=== PATIENT | female | born 1945 | race Two or more races ===

== ENCOUNTER → 2016-10-05 | Outpatient (CLI) | payer MEDICARE, OTHER ==
[2016-10-05 15:25] LABS: Blood Urea Nitrogen 13 mg/dL (7-17); Non-African American GFR(MDRD) >60 (>60 ml/min/1.73 sqM)
== END | disposition home or self-care (01) ==
LOC: LABWHC1 14:45
PROVIDERS: ATTEND Psychiatry & Neurology Neurology
DX: R55 Syncope and collapse (principal)
CPT/HCPCS: 36415; 82565; 84520

== ENCOUNTER → 2016-10-17 | Outpatient (CLI) | payer MEDICARE, OTHER ==
--- NOTE | 2016-10-17 23:33 | MR ---
EXAMINATION TYPE: MR brain wo/w con DATE OF EXAM: 10/17/2016 COMPARISON: NONE HISTORY: Brain tumor and memory loss TECHNIQUE: Multiplanar, multisequence images of the brain and brainstem is performed without and with IV contras t, gadolinium. FINDINGS: Ventricles and sulci appear fairly normal for age. There is mild cerebral cortical atrophy. There is no mass effect nor midline shift. There is no sign of intracranial hemorrhage. There is very minimal increased signal in the subependymal periventricular white matter on the FLAIR images. The brainstem is intact. Sella turcica appears normal. There is mild thinning of the corpus callosum. The contrast images show no pathologic enhancement. There is no evidence of cerebral cortical edema. IMPRESSION: There is mild age related atrophy. No evidence of a neoplastic process. Minimal white mat ter signal changes around the lateral ventricles is nonspecific. This could be earliest stages of tra nsependymal edema and normal pressure type hydrocephalus. There is no obvious hydrocephalus.
== END | disposition home or self-care (01) ==
LOC: RADMRIMAIN 20:36
PROVIDERS: ATTEND Psychiatry & Neurology Neurology
DX: G31.9 Degenerative disease of nervous system, unspecified (principal); R90.82 White matter disease, unspecified
CPT/HCPCS: 70553; A9577

== ENCOUNTER 2020-10-12 16:15 | Emergency (ER) | payer MEDICARE, OTHER ==
[2020-10-12 16:20] LABS: Glucose,Whole Blood 154 mg/dL (75-99)
[2020-10-12 16:35] VITALS: TEMP 97.6
[2020-10-12 17:47] LABS: Basophils # (A) 0.1 k/uL (0-0.2); Basophils % (A) 1 %; Eosinophils # (A) 0.3 k/uL (0-0.7); Eosinophils % (A) 4 %; HCT 49.2 % (34.0-46.0); HGB 16.3 gm/dL (11.4-16.0); Lymphocytes # (A) 2.4 k/uL (1.0-4.8); Lymphocytes % (A) 29 %; MCH 31.8 pg (25.0-35.0); MCHC 33.1 g/dL (31.0-37.0); MCV 96.1 fL (80.0-100.0); Mean Platelet Volume 7.3; Monocytes # (A) 0.5 k/uL (0-1.0); Monocytes % (A) 6 %; Neutrophils # (A) 4.6 k/uL (1.3-7.7); Neutrophils % (A) 56 %; Platelet Count 323 k/uL (150-450); RBC 5.12 m/uL (3.80-5.40); RDW 13.4 % (11.5-15.5); WBC 8.2 k/uL (3.8-10.6)
[2020-10-12 17:52] LABS: Appearance,Urine Cloudy (Clear); Bacteria,Urine Occasional /hpf; Bilirubin,Urine Negative (Negative); Blood,Urine Small (Negative); Color,Urine Yellow; Glucose,Urine (UA) 1+ (Negative); Ketones,Urine Negative (Negative); Leukocyte Esterase,Urine Large (Negative); Mucus,Urine Rare /hpf; Nitrite,Urine Negative (Negative); PH, Urine 5.5 (5.0-8.0); Protein,Urine Trace (Negative); RBC,Urine 34 /hpf (0-5); Specific Gravity,Urine 1.014 (1.001-1.035); Squamous Epithelial Cell,Urine <1 /hpf (0-4); Urobilinogen,Urine <2.0 mg/dL (<2.0); WBC,Urine >182 /hpf (0-5)
[2020-10-12 17:56] LABS: ALT 36 U/L (4-34); AST 44 U/L (14-36); African American GFR (CKD) >90 (>60 ml/min/1.73 sqM); Albumin 4.5 g/dL (3.5-5.0); Alkaline Phosphatase 136 U/L (38-126); Anion Gap 6 mmol/L; Blood Urea Nitrogen 24 mg/dL (7-17); Calcium 9.8 mg/dL (8.4-10.2); Carbon Dioxide 30 mmol/L (22-30); Chloride 106 mmol/L (98-107); Glucose 88 mg/dL (74-99); Magnesium 2.1 mg/dL (1.6-2.3); Non-African American GFR(CKD) 87 (>60 ml/min/1.73 sqM); Potassium 4.8 mmol/L (3.5-5.1); Sodium 142 mmol/L (137-145); Total Bilirubin 0.9 mg/dL (0.2-1.3); Total Protein 7.1 g/dL (6.3-8.2)
--- NOTE | 2020-10-12 18:21 | XR ---
EXAMINATION TYPE: XR chest 2V DATE OF EXAM: 10/12/2020 COMPARISON: NONE HISTORY: Weakness TECHNIQUE: 2 views FINDINGS: Heart and mediastinum are normal. Lungs are clear. Diaphragm is normal. There is bilateral shoulder surgery. Thoracic spine is intact. IMPRESSION: No active cardiac pulmonary disease. No change.
[2020-10-12] MEDS ORDERED: SODIUM CHLORIDE 0.9% 1,000 ML IV STA (18:47)
[2020-10-12] MEDS ORDERED: cefTRIAXone IN SWFI 1,000 MG/10 ML SYRINGE IVP STA (18:47)
--- NOTE | 2020-10-12 19:04 | ED ---
General Adult HPI - General Chief complaint: Recheck/Abnormal Lab/Rx Stated complaint: hypoglecemia Time Seen by Provider: 10/12/20 16:59 Source: patient, EMS, RN notes reviewed Mode of arrival: EMS Limitations: no limitations - History of Present Illness Initial comments: 75-year-old female with a past medical history of restless leg syndrome, asthma presents to the emergency room for a chief complaint of low glucose. Patient reports that she was at her doctor's office and she started to feel very flushed. Patient felt little lightheaded. The ambulance was called. Patient blood sugar was checked was 60. Patient was given an amp of dextrose. Patient didn't have any chest pain or shortness of breath preceding this. Patient states after she received the dextrose she immediately felt much better shortly after. Patient states she is just started a new protein diet and has not been eating carbs. She has only had a protein bar to eat today.Patient has no other complaints at this time including shortness of breath, chest pain, abdominal pain, nausea or vomiting, headache, or visual changes. - Related Data Previous Rx's Medication Instructions Recorded Cephalexin [Keflex] 500 mg PO Q6HR 7 Days #28 cap 10/12/20 Allergies Allergy/AdvReac Type Severity Reaction Status Date / Time No Known Allergies Allergy Verified 10/12/20 18:40 Review of Systems ROS Statement: Those systems with pertinent positive or pertinent negative responses have been documented in the HPI. ROS Other: All systems not noted in ROS Statement are negative. Past Medical History Past Medical History: Asthma Additional Past Medical History / Comment(s): restless legs syndrome History of Any Multi-Drug Resistant Organisms: ESBL, MRSA Date of last positivie culture/infection: 09/18/18-MRSA; 05/05/18-ESBL MDRO Source:: Lip-MRSA; ESBL URINE Past Surgical History: Back Surgery Additional Past Surgical History / Comment(s): bilateral foot surgery, bilateral shoulder, bilateral knee surgeries. Smoking Status: Never smoker Past Alcohol Use History: None Reported Past Drug Use History: None Reported General Exam Limitations: no limitations General appearance: alert, in no apparent distress Head exam: Present: atraumatic, normocephalic, normal inspection Eye exam: Present: normal appearance ENT exam: Present: normal exam, mucous membranes moist Neck exam: Present: normal inspection. Absent: tenderness, meningismus, lymphadenopathy Respiratory exam: Present: normal lung sounds bilaterally. Absent: respiratory distress, wheezes, rales, rhonchi, stridor Cardiovascular Exam: Present: regular rate, normal rhythm, normal heart sounds. Absent: systolic murmur, diastolic murmur, rubs, gallop, clicks GI/Abdominal exam: Present: soft, normal bowel sounds. Absent: distended, tenderness, guarding, rebound, rigid Course Vital Signs 10/12/20 10/12/20 16:24 19:52 Temperature 97.6 F Pulse Rate 66 64 Respiratory 16 18 Rate Blood Pressure 196/84 174/78 O2 Sat by Pulse 96 98 Oximetry EKG Findings - EKG Comments: EKG Findings:: Normal sinus rhythm, ventricular rate 69, MA interval 178, QTC 462 Medical Decision Making - Medical Decision Making Vital signs stable. Patient is well-appearing. Patient does have evidence of dehydration on laboratory evaluation. Hemoglobin is concentrated at 16.3. BUN is elevated at 24 with a BUN to creatinine ratio of 37.5. Patient was given a liter of fluid. Patient's glucose has been stable. Urinalysis does show evidence of urinary tract infection. Patient was given Rocephin. At this time patient likely has symptoms from hypoglycemia secondary to decreased dietary i ntake. Urinary tract infection may have also played a role which will be treated. Patient will follow-up with her doctor. She will return for any worsening symptoms. Patient's most recent urine culture was sensitive to penicillins, we will start her on Keflex. - Lab Data Result diagrams: 10/12/20 17:27 10/12/20 17:27 Lab Results 10/12/20 10/12/20 10/12/20 Range/Units 16:18 17:27 17:27 WBC 8.2 (3.8-10.6) k/uL RBC 5.12 (3.80-5.40) m/uL Hgb 16.3 H (11.4-16.0) gm/dL Hct 49.2 H (34.0-46.0) % MCV 96.1 (80.0-100.0) fL MCH 31.8 (25.0-35.0) pg MCHC 33.1 (31.0-37.0) g/dL RDW 13.4 (11.5-15.5) % Plt Count 323 (150-450) k/uL MPV 7.3 Neutrophils % 56 % Lymphocytes % 29 % Monocytes % 6 % Eosinophils % 4 % Basophils % 1 % Neutrophils # 4.6 (1.3-7.7) k/uL Lymphocytes # 2.4 (1.0-4.8) k/uL Monocytes # 0.5 (0-1.0) k/uL Eosinophils # 0.3 (0-0.7) k/uL Basophils # 0.1 (0-0.2) k/uL Sodium 142 (137-145) mmol/L Potassium 4.8 (3.5-5.1) mmol/L Chloride 106 (98-107) mmol/L Carbon Dioxide 30 (22-30) mmol/L Anion Gap 6 mmol/L BUN 24 H (7-17) mg/dL Creatinine 0.64 (0.52-1.04) mg/dL Est GFR (CKD-EPI)AfAm >90 (>60 ml/min/1.73 sqM) Est GFR (CKD-EPI)NonAf 87 (>60 ml/min/1.73 sqM) Glucose 88 (74-99) mg/dL POC Glucose (mg/dL) 154 H (75-99) mg/dL POC Glu Senior Application Programmer ID Ruth Mendoza Calcium 9.8 (8.4-10.2) mg/dL Magnesium 2.1 (1.6-2.3) mg/dL Total Bilirubin 0.9 (0.2-1.3) mg/dL AST 44 H (14-36) U/L ALT 36 H (4-34) U/L Alkaline Phosphatase 136 H (38-126) U/L Troponin I (0.000-0.034) ng/mL Total Protein 7.1 (6.3-8.2) g/dL Albumin 4.5 (3.5-5.0) g/dL Urine Color Urine Appearance (Clear) Urine pH (5.0-8.0) Ur Specific [place] (1.001-1.035) Urine Protein (Negative) Urine Glucose (UA) (Negative) Urine Ketones (Negative) Urine Blood (Negative) Urine Nitrite (Negative) Urine Bilirubin (Negative) Urine Urobilinogen (<2.0) mg/dL Ur Leukocyte Esterase (Negative) Urine RBC (0-5) /hpf Urine WBC (0-5) /hpf Urine WBC Clumps (None) /hpf Ur Squamous Epith Cells (0-4) /hpf Urine Bacteria (None) /hpf Urine Mucus (None) /hpf 10/12/20 10/12/20 Range/Units 17:27 17:27 WBC (3.8-10.6) k/uL RBC (3.80-5.40) m/uL Hgb (11.4-16.0) gm/dL Hct (34.0-46.0) % MCV (80.0-100.0) fL MCH (25.0-35.0) pg MCHC (31.0-37.0) g/dL RDW (11.5-15.5) % Plt Count (150-450) k/uL MPV Neutrophils % % Lymphocytes % % Monocytes % % Eosinophils % % Basophils % % Neutrophils # (1.3-7.7) k/uL Lymphocytes # (1.0-4.8) k/uL Monocytes # (0-1.0) k/uL Eosinophils # (0-0.7) k/uL Basophils # (0-0.2) k/uL Sodium (137-145) mmol/L Potassium (3.5-5.1) mmol/L Chloride (98-107) mmol/L Carbon Dioxide (22-30) mmol/L Anion Gap mmol/L BUN (7-17) mg/dL Creatinine (0.52-1.04) mg/dL Est GFR (CKD-EPI)AfAm (>60 ml/min/1.73 sqM) Est GFR (CKD-EPI)NonAf (>60 ml/min/1.73 sqM) Glucose (74-99) mg/dL POC Glucose (mg/dL) (75-99) mg/dL POC Glu Senior Application Programmer ID Calcium (8.4-10.2) mg/dL Magnesium (1.6-2.3) mg/dL Total Bilirubin (0.2-1.3) mg/dL AST (14-36) U/L ALT (4-34) U/L Alkaline Phosphatase (38-126) U/L Troponin I <0.012 (0.000-0.034) ng/mL Total Protein (6.3-8.2) g/dL Albumin (3.5-5.0) g/dL Urine Color Yellow Urine Appearance Cloudy H (Clear) Urine pH 5.5 (5.0-8.0) Ur Specific [place] 1.014 (1.001-1.035) Urine Protein Trace H (Negative) Urine Glucose (UA) 1+ H (Negative) Urine Ketones Negative (Negative) Urine Blood Small H (Negative) Urine Nitrite Negative (Negative) Urine Bilirubin Negative (Negative) Urine Urobilinogen <2.0 (<2.0) mg/dL Ur Leukocyte Esterase Large H (Negative) Urine RBC 34 H (0-5) /hpf Urine WBC >182 H (0-5) /hpf Urine WBC Clumps Few H (None) /hpf Ur Squamous Epith Cells <1 (0-4) /hpf Urine Bacteria Occasional H (None) /hpf Urine Mucus Rare H (None) /hpf Disposition Clinical Impression: UTI (urinary tract infection), Hypoglycemia Disposition: HOME SELF-CARE Condition: Good Instructions (If sedation given, give patient instructions): Urinary Tract Infection in Older Adults (ED) Additional Instructions: Please take antibiotics as directed. Drink plenty of fluids. Follow-up with your doctor. Return to the emergency room for any worsening symptoms. Prescriptions: Cephalexin [Keflex] 500 mg PO Q6HR 7 Days #28 cap Is patient prescribed a controlled substance at d/c from ED?: No Referrals: Dawn Sinclair MD [Primary Care Provider] - 1-2 days Time of Disposition: 19:09
[2020-10-12 19:53] VITALS: BP 174/78; PULSE 64; RESP 18
== END 2020-10-12 19:59 | disposition home or self-care (01) ==
LOC: EC 16:15
DX: N39.0 Urinary tract infection, site not specified (principal); E16.2 Hypoglycemia, unspecified; J45.909 Unspecified asthma, uncomplicated
CPT/HCPCS: 99285; 96361; 96374; 36415; 93005; 80053; 83735; 84484; 85025; 81001; 87086; 71046; J0696

== ENCOUNTER 2020-10-17 12:14 | Emergency (ER) | payer MEDICARE, OTHER ==
[2020-10-17 12:22] VITALS: TEMP 97.8
[2020-10-17 13:00] LABS: Glucose,Whole Blood 97 mg/dL (75-99)
[2020-10-17 13:08] LABS: Appearance,Urine Clear (Clear); Bilirubin,Urine Negative (Negative); Blood,Urine Trace (Negative); Color,Urine Yellow; Glucose,Urine (UA) Negative (Negative); Ketones,Urine Negative (Negative); Leukocyte Esterase,Urine Negative (Negative); Mucus,Urine Rare /hpf; Nitrite,Urine Negative (Negative); PH, Urine 5.5 (5.0-8.0); Protein,Urine Negative (Negative); RBC,Urine 13 /hpf (0-5); Specific Gravity,Urine 1.011 (1.001-1.035); Urobilinogen,Urine <2.0 mg/dL (<2.0); WBC,Urine 2 /hpf (0-5)
[2020-10-17] MEDS ORDERED: SODIUM CHLORIDE 0.9% 1,000 ML IV STA (14:10)
[2020-10-17] MEDS ORDERED: ONDANSETRON 4 MG/2 ML VIAL IVP STA (14:11)
[2020-10-17] MEDS ORDERED: FAMOTIDINE 20 MG/2 ML VIAL IV STA (14:11)
[2020-10-17 14:22] LABS: Basophils # (A) 0.1 k/uL (0-0.2); Basophils % (A) 1 %; Eosinophils # (A) 0.3 k/uL (0-0.7); Eosinophils % (A) 5 %; HCT 42.1 % (34.0-46.0); HGB 14.3 gm/dL (11.4-16.0); Lymphocytes # (A) 2.5 k/uL (1.0-4.8); Lymphocytes % (A) 35 %; MCH 31.9 pg (25.0-35.0); MCV 93.8 fL (80.0-100.0); Mean Platelet Volume 8.3; Monocytes # (A) 0.5 k/uL (0-1.0); Monocytes % (A) 7 %; Neutrophils # (A) 3.6 k/uL (1.3-7.7); Neutrophils % (A) 49 %; Platelet Count 360 k/uL (150-450); RBC 4.49 m/uL (3.80-5.40); RDW 12.9 % (11.5-15.5); WBC 7.3 k/uL (3.8-10.6)
[2020-10-17 14:37] LABS: ALT 44 U/L (4-34); AST 46 U/L (14-36); African American GFR (CKD) >90 (>60 ml/min/1.73 sqM); Albumin 3.8 g/dL (3.5-5.0); Alkaline Phosphatase 109 U/L (38-126); Anion Gap 5 mmol/L; Blood Urea Nitrogen 40 mg/dL (7-17); Calcium 9.7 mg/dL (8.4-10.2); Carbon Dioxide 26 mmol/L (22-30); Chloride 109 mmol/L (98-107); Glucose 95 mg/dL (74-99); Lipase 125 U/L (23-300); Non-African American GFR(CKD) 88 (>60 ml/min/1.73 sqM); Potassium 4.6 mmol/L (3.5-5.1); Sodium 140 mmol/L (137-145); Total Bilirubin 0.6 mg/dL (0.2-1.3); Total Protein 6.2 g/dL (6.3-8.2)
[2020-10-17 14:49] LABS: INR 0.9 (<1.2)
--- NOTE | 2020-10-17 14:56 | XR ---
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 Heart upper limits of normal in size. Mild tortuosity/ectasia of the thoracic aorta is unchanged. Mild interstitial prominence is un changed. Hazy lower density likely related to portable technique and overlying soft tissue. Upper and mid lungs are clear. Impression: Hazy lower lung densities likely technical due to portable technique and patient body habitus. Upper and mid lungs are clear. No definite acute process.
[2020-10-17 15:07] LABS: Partial Thromboplastin Time 20.4 sec (22.0-30.0)
[2020-10-17 16:23] VITALS: BP 138/76; PULSE 71; RESP 18
--- NOTE | 2020-10-17 16:28 | ED ---
General Adult HPI - General Chief complaint: Urogenital Stated complaint: revisit - UTI, arm swelling Time Seen by Provider: 10/17/20 13:52 Source: patient Mode of arrival: ambulatory Limitations: no limitations - History of Present Illness Initial comments: Patient is a 75 female with a past medical history remarkable for UTIs, restless leg syndrome, asthma who presents to emergency department complaining of intermittent abdominal discomfort which is more or less resolved at this time. She states she has been having multiple episodes of loose stools over the last few days. She denies any fevers, chills, sick contacts. She states she recently completed a course of antibiotics for her UTI. She is concerned that she may have another UTI. She denies any drug use. She denies any chest pain or shortness of breath. She has no other acute complaints at this time. Her primary complaint is her nonbloody loose stool that she is having. She wanted to be reevaluated as she cannot get into her primary care's office. - Related Data Home Medications Medication Instructions Recorded Confirmed ARIPiprazole [Abilify] 1 mg PO DAILY 10/17/20 10/17/20 Albuterol Sulfate [Ventolin HFA] 2 puff INHALATION RT-QID PRN 10/17/20 10/17/20 Artificial Tears-Hypromellose 1 drop BOTH EYES HS 10/17/20 10/17/20 [Artificial Tear Drops] Brimonidine Tartrate [Alphagan P 1 drop LEFT EYE BID 10/17/20 10/17/20 0.1% Ophth Soln] DULoxetine HCL [Cymbalta] 60 mg PO DAILY 10/17/20 10/17/20 Diclofenac Sodium [Voltaren] 50 mg PO BID 10/17/20 10/17/20 Divalproex ER [Depakote ER] 500 mg PO HS 10/17/20 10/17/20 Dorzolamide 2% [Trusopt 2%] 1 drop BOTH EYES BID 10/17/20 10/17/20 Fluticasone/Salmeterol [Advair 1 puff INHALATION RT-BID 10/17/20 10/17/20 250-50 Diskus] Levothyroxine Sodium [Synthroid] 100 mcg PO DAILY 10/17/20 10/17/20 Omeprazole 20 mg PO DAILY PRN 10/17/20 10/17/20 Travoprost [Travatan Z 0.004%] 1 drop BOTH EYES HS 10/17/20 10/17/20 Vit C/E/Zn/Coppr/Lutein/Zeaxan 1 cap PO BID 10/17/20 10/17/20 [Preservision Areds 2 Softgel] lamoTRIgine [LaMICtal] 50 mg PO DAILY 10/17/20 10/17/20 rOPINIRole HCL [Requip] 2 mg PO HS 10/17/20 10/17/20 Allergies Allergy/AdvReac Type Severity Reaction Status Date / Time No Known Allergies Allergy Verified 10/17/20 16:29 Review of Systems ROS Statement: Those systems with pertinent positive or pertinent negative responses have been documented in the HPI. Review of Systems: CONST: Denies fever EYES: Denies blurry vision ENT: Denies nasal congestion C/V: Denies Chest pain RESP: Denies shortness of breath GI: Endorses loose stool : Denies dysuria SKIN: Denies rash. MSK: Denies joint pain. NEURO: Denies headache ROS Other: All systems not noted in ROS Statement are negative. Past Medical History Past Medical History: Asthma Additional Past Medical History / Comment(s): restless legs syndrome History of Any Multi-Drug Resistant Organisms: ESBL, MRSA Date of last positivie culture/infection: 09/18/18-MRSA; 05/05/18-ESBL MDRO Source:: Lip-MRSA; ESBL URINE Past Surgical History: Back Surgery Additional Past Surgical History / Comment(s): bilateral foot surgery, bilateral shoulder, bilateral knee surgeries. Past Psychological History: No Psychological Hx Reported Smoking Status: Never smoker Past Alcohol Use History: None Reported Past Drug Use History: None Reported General Exam - General Exam Comments Initial Comments: General: Appears in no acute distress. HEAD: Normal with no signs of head trauma. EYES: PERRLA, EOMI, conjunctiva normal, no discharge. ENT: Hearing grossly intact, normal oropharynx. RESPIRATORY: Clear breath sounds bilaterally. No wheezes, rales, or rhonchi. C/V: Regular rate and rhythm. S1 and S2 auscultated, no edema, peripheral pulses 2+ and intact throughout ABD: Abdomen soft, nontender, nondistended. She has no CVA tenderness to percussion. There is no guarding. There are no peritoneal signs. EXT: Normal range of motion, no obvious deformity SKIN: No rashes or lesions observed on exposed skin. NEURO: Alert and oriented 4 Limitations: no limitations Course Vital Signs 10/17/20 10/17/20 12:19 16:23 Temperature 97.8 F Pulse Rate 82 71 Respiratory 16 18 Rate Blood Pressure 148/87 138/76 O2 Sat by Pulse 97 97 Oximetry EKG Findings - EKG Comments: EKG Findings:: 12-lead Electrocardiogram Interpretation Note. EKG was reviewed and interpreted by myself. 12-lead ECG performed at 1417 is interpreted by me as revealing normal sinus rhythm at a rate of 65 beats per minute. [place] is normal. TN interval is 180 ms, QRS duration is 76 seconds, QTC is 438 ms.. There were no ST or T wave abnormalities to suggest myocardial ischemia or injury. R wave progression across the precordium was satisfactory. By my interpretation this EKG is non-diagnostic for acute ischemia. Medical Decision Making - Medical Decision Making Based on the patient's presentation and physical exam, I would like to rule out possible cardiac etiology for her nonspecific abdominal discomfort. I would also like to obtain basic abdominal laboratories studies as well as a urinalysis. The patient was in agreement to this plan. This also includes an EKG and chest x-ray. Patient will be connected to continuous cardiac monitoring while she is here in the department. She will be given a 1 L fluid bolus as well as IV Zofran and famotidine. Patient's EKG was within normal limits and show no acute signs of ischemia. Patient's chest x-ray revealed no acute cardiopulmonary process. Laboratory studies revealed mildly elevated BUN but otherwise normal renal function. Patient is very mildly elevated LFTs with an AST of 46 and ALT of 44. Patient's urinalysis did not reveal any acute signs of infection at this time. Troponin was negative. On reevaluation, patient is feeling improved. She no longer has abdominal discomfort. She would like to be discharged home with follow-up with her PCP. I believe this is reasonable. I informed her that her workup is negative and she expressed understanding. She'll therefore was discharged home in improved condition. - Lab Data Result diagrams: 10/17/20 14:10 10/17/20 14:36 Lab Results 10/17/20 10/17/20 10/17/20 Range/Units 12:48 12:58 14:10 WBC 7.3 (3.8-10.6) k/uL RBC 4.49 (3.80-5.40) m/uL Hgb 14.3 (11.4-16.0) gm/dL Hct 42.1 (34.0-46.0) % MCV 93.8 (80.0-100.0) fL MCH 31.9 (25.0-35.0) pg MCHC 34.0 (31.0-37.0) g/dL RDW 12.9 (11.5-15.5) % Plt Count 360 (150-450) k/uL MPV 8.3 Neutrophils % 49 % Lymphocytes % 35 % Monocytes % 7 % Eosinophils % 5 % Basophils % 1 % Neutrophils # 3.6 (1.3-7.7) k/uL Lymphocytes # 2.5 (1.0-4.8) k/uL Monocytes # 0.5 (0-1.0) k/uL Eosinophils # 0.3 (0-0.7) k/uL Basophils # 0.1 (0-0.2) k/uL PT (9.0-12.0) sec INR (<1.2) APTT (22.0-30.0) sec Sodium (137-145) mmol/L Potassium (3.5-5.1) mmol/L Chloride (98-107) mmol/L Carbon Dioxide (22-30) mmol/L Anion Gap mmol/L BUN (7-17) mg/dL Creatinine (0.52-1.04) mg/dL Est GFR (CKD-EPI)AfAm (>60 ml/min/1.73 sqM) Est GFR (CKD-EPI)NonAf (>60 ml/min/1.73 sqM) Glucose (74-99) mg/dL POC Glucose (mg/dL) 97 (75-99) mg/dL POC Glu Manager Drug ID Jennifer Crabtree Calcium (8.4-10.2) mg/dL Magnesium (1.6-2.3) mg/dL Total Bilirubin (0.2-1.3) mg/dL AST (14-36) U/L ALT (4-34) U/L Alkaline Phosphatase (38-126) U/L Troponin I (0.000-0.034) ng/mL Total Protein (6.3-8.2) g/dL Albumin (3.5-5.0) g/dL Lipase (23-300) U/L Urine Color Yellow Urine Appearance Clear (Clear) Urine pH 5.5 (5.0-8.0) Ur Specific [place] 1.011 (1.001-1.035) Urine Protein Negative (Negative) Urine Glucose (UA) Negative (Negative) Urine Ketones Negative (Negative) Urine Blood Trace H (Negative) Urine Nitrite Negative (Negative) Urine Bilirubin Negative (Negative) Urine Urobilinogen <2.0 (<2.0) mg/dL Ur Leukocyte Esterase Negative (Negative) Urine RBC 13 H (0-5) /hpf Urine WBC 2 (0-5) /hpf Urine Mucus Rare H (None) /hpf 10/17/20 10/17/20 10/17/20 Range/Units 14:36 14:36 14:36 WBC (3.8-10.6) k/uL RBC (3.80-5.40) m/uL Hgb (11.4-16.0) gm/dL Hct (34.0-46.0) % MCV (80.0-100.0) fL MCH (25.0-35.0) pg MCHC (31.0-37.0) g/dL RDW (11.5-15.5) % Plt Count (150-450) k/uL MPV Neutrophils % % Lymphocytes % % Monocytes % % Eosinophils % % Basophils % % Neutrophils # (1.3-7.7) k/uL Lymphocytes # (1.0-4.8) k/uL Monocytes # (0-1.0) k/uL Eosinophils # (0-0.7) k/uL Basophils # (0-0.2) k/uL PT 10.0 (9.0-12.0) sec INR 0.9 (<1.2) APTT 20.4 L (22.0-30.0) sec Sodium 140 (137-145) mmol/L Potassium 4.6 (3.5-5.1) mmol/L Chloride 109 H (98-107) mmol/L Carbon Dioxide 26 (22-30) mmol/L Anion Gap 5 mmol/L BUN 40 H (7-17) mg/dL Creatinine 0.61 (0.52-1.04) mg/dL Est GFR (CKD-EPI)AfAm >90 (>60 ml/min/1.73 sqM) Est GFR (CKD-EPI)NonAf 88 (>60 ml/min/1.73 sqM) Glucose 95 (74-99) mg/dL POC Glucose (mg/dL) (75-99) mg/dL POC Glu Manager Drug ID Calcium 9.7 (8.4-10.2) mg/dL Magnesium 2.0 (1.6-2.3) mg/dL Total Bilirubin 0.6 (0.2-1.3) mg/dL AST 46 H (14-36) U/L ALT 44 H (4-34) U/L Alkaline Phosphatase 109 (38-126) U/L Troponin I <0.012 (0.000-0.034) ng/mL Total Protein 6.2 L (6.3-8.2) g/dL Albumin 3.8 (3.5-5.0) g/dL Lipase 125 (23-300) U/L Urine Color Urine Appearance (Clear) Urine pH (5.0-8.0) Ur Specific [place] (1.001-1.035) Urine Protein (Negative) Urine Glucose (UA) (Negative) Urine Ketones (Negative) Urine Blood (Negative) Urine Nitrite (Negative) Urine Bilirubin (Negative) Urine Urobilinogen (<2.0) mg/dL Ur Leukocyte Esterase (Negative) Urine RBC (0-5) /hpf Urine WBC (0-5) /hpf Urine Mucus (None) /hpf Disposition Clinical Impression: Loose stools, Dehydration Disposition: HOME SELF-CARE Condition: Good Instructions (If sedation given, give patient instructions): Dehydration (ED) Is patient prescribed a controlled substance at d/c from ED?: No Referrals: Dawn Sinclair MD [Primary Care Provider] - 1-2 days
== END 2020-10-17 16:38 | disposition home or self-care (01) ==
LOC: EC 12:14
DX: E86.0 Dehydration (principal); R19.7 Diarrhea, unspecified; R10.9 Unspecified abdominal pain; R79.89 Other specified abnormal findings of blood chemistry; R94.5 Abnormal results of liver function studies; M79.89 Other specified soft tissue disorders; J45.909 Unspecified asthma, uncomplicated; G25.81 Restless legs syndrome; Z79.1 Long term (current) use of non-steroidal anti-inflammatories (NSAID); Z79.51 Long term (current) use of inhaled steroids
CPT/HCPCS: 36415; 93005; 80053; 83690; 83735; 84484; 85025; 85610; 85730; 81001; 71045; 99284; 96374; 96361; 96375; J2405

== ENCOUNTER → 2021-01-18 | Outpatient (CLI) | payer MEDICARE, OTHER ==
--- NOTE | 2021-01-18 11:35 | US ---
EXAMINATION TYPE: US carotid duplex BILAT DATE OF EXAM: 01/18/2021 COMPARISON: NONE CLINICAL HISTORY: G45.2 TIA. Dizziness EXAM MEASUREMENTS: RIGHT: Peak Systolic Velocity (PSV) cm/sec ----- Right CCA: 77.2 ----- Right ICA: 84.1 ----- Right ECA: 63.8 ICA/CCA ratio: 1.1 RIGHT: End Diastole cm/sec ----- Right CCA: 18.1 ----- Right ICA: 19.7 ----- Right ECA: 10.1 LEFT: Peak Systolic Velocity (PSV) cm/sec ----- Left CCA: 80.2 ----- Left ICA: 85.7 ----- Left ECA: 89.1 ICA/CCA ratio: 1.1 LEFT: End Diastole cm/sec ----- Left CCA: 21.2 ----- Left ICA: 25.1 ----- Left ECA: 15.0 VERTEBRALS (direction of flow): Right Vertebral: Antegrade Left Vertebral: Antegrade Rhythm: Normal No elevated velocities IMPRESSION: No evidence for hemodynamically significant stenosis. Criteria for Assigning % of Stenosis / Diameter reduction (Estimation based on the indirect measurements of the internal carotid artery velocities (ICA PSV). 1. Normal (no stenosis)=ICA PSV < 125 cm/s: ratio < 2.0: ICA EDV<40 cm/s. 2. Less than 50% stenosis=ICA PSV < 125 cm/s: ratio < 2.0: ICA EDV<40 cm/s. 3. 50 to 69% stenosis=ICA PSV of 125 to 230 cm/s: ration 2.0 ? 4.0: ICA EDV 40-100 cm/s. 4. Greater than 70% stenosis to near occlusion= ICA PSV > 230 cm/s: ratio > 4.0: ICA EDV > 100 cm/s. 5. Near occlusion= ICA PSV velocities may be low or undetectable: variable ratio and ICA EDV. 6. Total occlusion=unable to detect flow.
== END | disposition home or self-care (01) ==
LOC: RADUSWWP 10:38
PROVIDERS: ATTEND Psychiatry & Neurology Neurology
DX: G45.2 Multiple and bilateral precerebral artery syndromes (principal)
CPT/HCPCS: 93880

== ENCOUNTER → 2021-06-15 | Outpatient (CLI) | payer MEDICARE, OTHER ==
--- NOTE | 2021-06-15 13:45 | XR ---
Cervical spine with flexion and extension views HISTORY: Arm weakness for one year 7 views of the cervical spine There is multilevel facet arthropathy change. Oblique images show some foraminal encroachment on the right at C5-6. There is multilevel spondylosis. Loss of disc height is present C3-4, C4-5, C5-6 and C 6-7. Cervical vertebral bodies show preserved height and alignment, bone mineralization. No significa nt listhesis seen on extension view, on flexion there is some anterolisthesis grade 1 C3-4. IMPRESSION: Degenerative disc disease and facet arthropathy, spondylolisthesis on flexion view
== END | disposition home or self-care (01) ==
LOC: RADXRMAIN 11:45
PROVIDERS: ATTEND Family Medicine
DX: M50.323 Other cervical disc degeneration at C6-C7 level (principal); M46.92 Unspecified inflammatory spondylopathy, cervical region; M43.12 Spondylolisthesis, cervical region
CPT/HCPCS: 72052

== ENCOUNTER → 2021-09-19 | Outpatient (CLI) | payer MEDICARE, OTHER ==
--- NOTE | 2021-09-19 15:14 | US ---
EXAMINATION TYPE: US venous doppler duplex LE DATE OF EXAM: 09/19/2021 1:03 PM COMPARISON: NONE CLINICAL HISTORY: I82.409 EMBOLISM AND THOMBOS UNSP DEEP VN. Patient states she had back surgery 6 mo nths ago and ended up with blood clots. No redness or swelling. On blood thinners. SIDE PERFORMED: Bilateral TECHNIQUE: The lower extremity deep venous system is examined utilizing real time linear array sonog oseas with graded compression, doppler sonography and color-flow sonography. VESSELS IMAGED: Common Femoral Vein Deep Femoral Vein Greater Saphenous Vein * Femoral Vein Popliteal Vein Small Saphenous Vein * Proximal Calf Veins (* superficial vessels) There is normal flow, compressibility, vascular waveforms. Right Leg: Negative for DVT Left Leg: Negative for DVT IMPRESSION: No evident deep venous thrombosis within the lower extremities from the level of the knee centrally
== END | disposition home or self-care (01) ==
LOC: RADUSWWP 12:10
PROVIDERS: ATTEND Family Medicine
DX: I82.409 Acute embolism and thrombosis of unspecified deep veins of unspecified lower extremity (principal)
CPT/HCPCS: 93970

== ENCOUNTER → 2021-10-10 | Outpatient (CLI) | payer MEDICARE, OTHER ==
--- NOTE | 2021-10-10 10:27 | MM ---
Reason for Exam: Follow-up at short interval from prior study. Last screening mammogram was performed 4 month(s) ago. Patient History: Menarche at age 12. Postmenopausal. Risk Values: [place] 5 year model risk: 1.3%. NCI Lifetime model risk: 2.4%. Prior Study Comparison: 02/07/2021 Bilateral MG screening mammo w CAD - 2, [facility]. 02/16/2021 Right MG diagnostic mammo RT w CAD - 2, [facility]. 06/13/2021 Right MG diagnostic mammo RT w CAD - 2, [facility]. Tissue Density: The breast tissue is heterogeneously dense. This may lower the sensitivity of mammography. Findings: Analyzed By CAD. There is a 6mm equal, oval mass in the right breast upper outer quadrant with calcifications. There are indeterminate grouped calcifications in the right upper outer quadrant. Overall Assessment: Suspicious, BI-RAD 4 Management: Stereotactic Core Biopsy of the right breast. Electronically signed and approved by: Orestes Shin M.D. Radiologis
== END | disposition home or self-care (01) ==
LOC: RADMAMWWP 08:14
PROVIDERS: ATTEND Family Medicine
DX: R92.8 Other abnormal and inconclusive findings on diagnostic imaging of breast (principal)
CPT/HCPCS: 77066; G0279; 77062

== ENCOUNTER → 2021-10-11 | Outpatient (CLI) | payer MEDICARE, OTHER ==
[2021-10-11 10:15] VITALS: BP 160/91; PULSE 73; RESP 17; TEMP 98.7
--- NOTE | 2021-10-11 11:11 | P.GSHP ---
History of Present Illness H&P Date: 10/11/21 Chief Complaint: abnoraml right breast mammogram Stefani is a 76 year old white female seen in consultation for Dr. Sinclair regarding an abnormality in the right breast. On 10-10-21 she had a bilateral 3-D mammogram reviewed with Dr. Louis and an area of new calci fications was seen in the UOQ of the right breast. Stero biopsy was recommended this area. A second area which appeared to be some nodularity seems to dissipate on the 3-D views. She does not feel any loss masses or nodules of concern in either breast. She is not complaining of any nipple discharge or skin changes. She has not had any recent trauma or infection in the breast. She has never had any surgery on her breast. Family history: sister: lung cancer smoker Hormonal History: menarche: 11 G0 menopause: about 49 BCP: none hormones: none Surgical history: Abscess Bowel obstruction Bilateral total knee Parotid Right shoulder Back Cataracts Right ring finger Back laminectomy Bilateral carpal tunnel Back surgery again in February 2020 Right foot reconstruction 2014 Right shoulder replacement April 2015 Left foot reconstruction April 2018 Left shoulder arthroscopic June 2018 total shoulder replacement September 2018 multiple foot and back surgeries Medical History: pulmonary embolism after back surgery, 2020 ( was on blood thinners, and did have a caregiver filter which has been removed) Social History: smoke: none alcohol: none drugs: none - Constitutional Constitutional: Denies chills, Denies fever - EENT Eyes: denies blurred vision, denies pain Ears: deny: decreased hearing, tinnitus Ears, nose, mouth and throat: Denies headache, Denies sore throat - Breasts Breasts: bilateral: as per HPI - Cardiovascular Cardiovascular: Reports shortness of breath, Denies chest pain - Respiratory Comment: asthma Respiratory: Reports as per HPI - Gastrointestinal Comment: colon resection bowel obstruction Gastrointestinal: Reports as per HPI, Denies abdominal pain, Denies diarrhea, Denies nausea, Denies vomiting - Genitourinary (Female) Comment: bladder leaking/ self cath Genitourinary: Denies dysuria, Denies hematuria - Menstruation Menstruation: Reports postmenopausal - Musculoskeletal Musculoskeletal: Denies myalgias - Integumentary Comment: psoriasis Integumentary: Denies pruritus, Denies rash - Neurological Neurological: Denies numbness, Denies weakness - Psychiatric Psychiatric: Reports depression, Denies anxiety - Endocrine Endocrine: Denies fatigue, Denies weight change - Hematologic/Lymphatic Comment: none off eliquis - Allergic/Immunologic Allergic/Immunologic: Reports as per HPI Past Medical History Past Medical History: Asthma, Osteoarthritis (OA), Thyroid Disorder Additional Past Medical History / Comment(s): restless legs syndrome, History of Any Multi-Drug Resistant Organisms: ESBL, MRSA Date of last positivie culture/infection: 09/18/18-MRSA; 05/05/18-ESBL MDRO Source:: Lip-MRSA; ESBL URINE Past Surgical History: Back Surgery, Orthopedic Surgery, Tonsillectomy Additional Past Surgical History / Comment(s): bilateral foot surgery, bilateral shoulder, bilateral knee surgeries. Four back surgeries last one Feb 2022 Past Anesthesia/Blood Transfusion Reactions: No Reported Reaction Past Psychological History: Depression Additional Psychological History / Comment(s): depression in . Takes medication Smoking Status: Never smoker Past Alcohol Use History: None Reported Past Drug Use History: None Reported Medications and Allergies Home Medications Medication Instructions Recorded Confirmed Type ARIPiprazole [Abilify] 1 mg PO DAILY 10/17/20 10/11/21 History Albuterol Sulfate [Ventolin HFA] 2 puff INHALATION RT-QID PRN 10/17/20 10/11/21 History Artificial Tears-Hypromellose 1 drop BOTH EYES HS 10/17/20 10/11/21 History [Artificial Tear Drops] Brimonidine Tartrate [Alphagan P 1 drop LEFT EYE BID 10/17/20 10/11/21 History 0.1% Ophth Soln] DULoxetine HCL [Cymbalta] 60 mg PO DAILY 10/17/20 10/11/21 History Diclofenac Sodium [Voltaren] 50 mg PO BID 10/17/20 10/11/21 History Divalproex ER [Depakote ER] 500 mg PO HS 10/17/20 10/11/21 History Fluticasone Propion/Salmeterol 1 puff INHALATION RT-BID 10/17/20 10/11/21 History [Advair 250-50 Diskus] Levothyroxine Sodium [Synthroid] 100 mcg PO DAILY 10/17/20 10/11/21 History Omeprazole 40 mg PO DAILY PRN 10/17/20 10/11/21 History Travoprost [Travatan Z 0.004%] 1 drop BOTH EYES HS 10/17/20 10/11/21 History Vit C/E/Zn/Coppr/Lutein/Zeaxan 1 cap PO BID 10/17/20 10/11/21 History [Preservision Areds 2 Softgel] lamoTRIgine [LaMICtal] 50 mg PO DAILY 10/17/20 10/11/21 History rOPINIRole HCL [Requip] 2 mg PO HS 10/17/20 10/11/21 History Pilocarpine [Salagen] 5 mg PO TID 10/10/21 10/11/21 History Aspirin [[place] Aspirin EC] 81 mg PO DAILY 10/11/21 10/11/21 History Cholecalciferol [Vitamin D3 (25 50 mcg PO DAILY 10/11/21 10/11/21 History Mcg = 1000 Iu)] Allergies Allergy/AdvReac Type Severity Reaction Status Date / Time No Known Allergies Allergy Verified 10/11/21 10:05 Surgical - Exam Vital Signs Temp Pulse Resp BP Pulse Ox 98.7 F 73 17 160/91 98 10/11/21 10:12 10/11/21 10:12 10/11/21 10:12 10/11/21 10:12 10/11/21 10:12 BMI: 32.6 - General well developed, well nourished, no distress - Eyes normal ocular movement - ENT no hearing loss - Neck trachea midline - Respiratory normal respiratory effort, clear to auscultation - Cardiovascular Rhythm: regular Heart Sounds: normal: S1, S2 - Abdomen Abdomen: soft, non tender, no guarding, no rigid, no rebound - Integumentary normal turgor - Neurologic no disoriented, no combative - Psychiatric oriented to time, oriented to person, oriented to place, speech is normal, memory intact Breast Exam: BRA: 40D inspection: bilateral grade 3 ptosis palpation: Right breast: Multi-positional exam small area of nodularity upper outer quadrant which may be consistent with that which was seen radiographically Right axilla: No adenopathy of concern Left breast: Multi-positional exam no dominant masses or nodules of concern Left axilla: No adenopathy of concern Results Mammogram reviewed in detail with Dr. Huynh/microcalcifications of concern right breast upper outer quadrant Assessment and Plan Assessment: Impression: Asthma Prior pulmonary embolism resolved Multiple back surgeries Shoulder surgeries Multiple orthopedic procedures Mammographic abnormality right breast Plan: Right breast are detected core biopsy Depending on results of biopsy would recommend biopsy of palpable abnormality as well this may or may not be that which is seen radiographically Risks and benefits of the procedure discussed with the patient. Risks include but are not limited to bleeding, infection, reaction to the anesthetic. If the biopsy results were discordant further tissue would be necessary for evaluation. Alternatives such as watchful waiting or resection in the operating room and noted but not recommended. The patient understands and wishes to proceed. Cc: Dr. Sinclair
== END | disposition home or self-care (01) ==
LOC: WWCWWP 09:55
PROVIDERS: ATTEND Surgery
DX: Z53.9 Procedure and treatment not carried out, unspecified reason (principal)

== ENCOUNTER → 2021-10-16 | Day surgery (SDC) | payer MEDICARE, OTHER ==
[2021-10-16 07:17] VITALS: RESP 16; TEMP 98.6
[2021-10-16 08:47] VITALS: BP 131/79; PULSE 69
--- NOTE | 2021-10-25 10:25 | MM ---
Risk Values: Sherley 5 year model risk: 1.3%. NCI Lifetime model risk: 2.4%. Prior Study Comparison: 02/16/2021 Right MG diagnostic mammo RT w CAD - 2, [facility]. 06/13/2021 Right MG diagnostic mammo RT w CAD - 2, [facility]. 10/10/2021 Bilateral MG 3D diag mammo w/cad [facility], [facility]. Pathology Description: Location: upper outer quadrant. Marker Left Behind. Specimen Radiograph. Approach: CC FA Needle Type: Eviva Cores: 7 Skin Nicks: 1 Gauge: 9 Pathology Results: Result: Benign, Fat necrosis. RIGHT BREAST, CORE BIOPSY: Nodular fat necrosis with acute and chronic inflammation, focal microcalcification, hemorrhage and focal fibrocystic change. Current specimen negative for malignancy. Overall Assessment: Benign Management: Diagnostic Mammogram of the right breast in 6 months. Electronically signed and approved by: Joby Springer D.O. Radiologis
== END ==
LOC: RADMAMWWP 07:04
PROVIDERS: ATTEND Surgery
DX: N64.1 Fat necrosis of breast (principal); R92.0 Mammographic microcalcification found on diagnostic imaging of breast; R92.8 Other abnormal and inconclusive findings on diagnostic imaging of breast
CPT/HCPCS: 88305; 19081; A4648; J2001

== ENCOUNTER 2022-03-16 12:58 | Emergency (ER) | payer MEDICARE, OTHER ==
[2022-03-16 14:20] VITALS: RESP 16; TEMP 97.9
[2022-03-16] MEDS ORDERED: ACETAMINOPHEN TAB 500 MG TAB PO STA (16:22)
--- NOTE | 2022-03-16 16:33 | ED ---
General Adult HPI - General Chief complaint: Head Injury Stated complaint: Fall on , Head Injury Time Seen by Provider: 03/16/22 16:02 Source: patient, RN notes reviewed Mode of arrival: ambulatory Limitations: no limitations - History of Present Illness Initial comments: 76 year old female presents to the emergency department for evaluation of head ache and nausea, onset Saturday evening. Patient states she tripped and fell when getting out of the car Saturday night causing her to strike her head on an asphalt driveway. States she required assistance to standing, but denies any loss of consciousness. States over the past the few days the headache has persisted but the hematoma on her scalp has improved with application of ice. States she feels sore and achy, however, has been able to tolerate oral intake and is ambulatory without assistance. Patient does not take any blood thinning medications. Also complains of right foot pain and is concerned that she landed on it when she fell. Denies dizziness, blurry vision, pain with eye movement, vomiting, chest pain, abdominal pain, hip and back pain, and lower extremity edema. - Related Data Home Medications Medication Instructions Recorded Confirmed ARIPiprazole [Abilify] 1 mg PO DAILY 10/17/20 10/16/21 Albuterol Sulfate [Ventolin HFA] 2 puff INHALATION RT-QID PRN 10/17/20 10/16/21 Artificial Tears-Hypromellose 1 drop BOTH EYES HS 10/17/20 10/16/21 [Artificial Tear Drops] Brimonidine Tartrate [Alphagan P 1 drop LEFT EYE BID 10/17/20 10/16/21 0.1% Ophth Soln] DULoxetine HCL [Cymbalta] 60 mg PO DAILY 10/17/20 10/16/21 Diclofenac Sodium [Voltaren] 50 mg PO BID 10/17/20 10/16/21 Divalproex ER [Depakote ER] 500 mg PO HS 10/17/20 10/16/21 Fluticasone Propion/Salmeterol 1 puff INHALATION RT-BID 10/17/20 10/16/21 [Advair 250-50 Diskus] Levothyroxine Sodium [Synthroid] 100 mcg PO DAILY 10/17/20 10/16/21 Omeprazole 40 mg PO DAILY PRN 10/17/20 10/16/21 Travoprost [Travatan Z 0.004%] 1 drop BOTH EYES HS 10/17/20 10/16/21 Vit C/E/Zn/Coppr/Lutein/Zeaxan 1 cap PO BID 10/17/20 10/16/21 [Preservision Areds 2 Softgel] lamoTRIgine [LaMICtal] 50 mg PO DAILY 10/17/20 10/16/21 rOPINIRole HCL [Requip] 2 mg PO HS 10/17/20 10/16/21 Pilocarpine [Salagen] 5 mg PO TID 10/10/21 10/16/21 Aspirin [[place] Aspirin EC] 81 mg PO DAILY 10/11/21 10/11/21 Cholecalciferol [Vitamin D3 (25 50 mcg PO DAILY 10/11/21 10/11/21 Mcg = 1000 Iu)] Allergies Allergy/AdvReac Type Severity Reaction Status Date / Time No Known Allergies Allergy Verified 03/16/22 14:17 Review of Systems ROS Statement: Those systems with pertinent positive or pertinent negative responses have been documented in the HPI. ROS Other: All systems not noted in ROS Statement are negative. Past Medical History Past Medical History: Asthma, Osteoarthritis (OA), Thyroid Disorder Additional Past Medical History / Comment(s): restless legs syndrome, History of Any Multi-Drug Resistant Organisms: ESBL, MRSA Date of last positivie culture/infection: 09/18/18-MRSA; 05/05/18-ESBL MDRO Source:: Lip-MRSA; ESBL URINE Past Surgical History: Back Surgery, Orthopedic Surgery, Tonsillectomy Additional Past Surgical History / Comment(s): bilateral foot surgery, bilateral shoulder, bilateral knee surgeries. Four back surgeries last one Feb 2022 Past Anesthesia/Blood Transfusion Reactions: No Reported Reaction Past Psychological History: Depression Smoking Status: Former smoker Past Alcohol Use History: None Reported Past Drug Use History: None Reported General Exam Limitations: no limitations General appearance: alert, in no apparent distress Head exam: Present: other (2cm hematoma right parietal area; no abrasion) Eye exam: Present: normal appearance, PERRL, EOMI. Absent: scleral icterus, conjunctival injection, periorbital swelling, periorbital tenderness ENT exam: Present: normal exam, normal oropharynx, mucous membranes moist Neck exam: Present: normal inspection, tenderness (tenderness upon palpation bilateral trapezius muscles and with rotational movement of the neck), full ROM. Absent: lymphadenopathy Respiratory exam: Present: normal lung sounds bilaterally. Absent: respiratory distress, wheezes, rales, rhonchi, stridor, chest wall tenderness Cardiovascular Exam: Present: regular rate, normal rhythm, normal heart sounds GI/Abdominal exam: Present: soft, normal bowel sounds. Absent: distended, tenderness, guarding, rebound, rigid Extremities exam: Present: normal inspection, full ROM (BLE ROM intact and symmetrical), tenderness (tenderness upon palpation of the dorsal aspect of the midfoot), normal capillary refill. Absent: pedal edema, joint swelling, calf tenderness Back exam: Present: normal inspection, full ROM. Absent: tenderness, CVA tenderness (R), CVA tenderness (L), muscle spasm, paraspinal tenderness, vertebral tenderness Neurological exam: Present: alert, oriented X3, CN II-XII intact, normal gait, reflexes normal Expanded Patient oriented to: Present: person, place, time Speech: Present: fluid speech Cranial nerves: EOM's Intact: Normal, Nystagmus: Normal Cerebellar function: Heel to Raymond: Normal Sensory exam: Lower Extremity Light Touch: Normal Motor strength exam: RUE: 5, LUE: 5, RLE: 5, LLE: 5 Eye Response: (4) open spontaneously Motor Response: (6) obeys commands Verbal Response: (5) oriented Amilcar Total: 15 Psychiatric exam: Present: normal affect, normal mood Skin exam: Present: warm, dry, intact, normal color. Absent: rash Course Vital Signs 03/16/22 14:17 Temperature 97.9 F Pulse Rate 72 Respiratory 16 Rate Blood Pressure 167/83 O2 Sat by Pulse 98 Oximetry - Reevaluation(s) Reevaluation #1: 03/16/22 17:45 Patient updated on test results; she verbalizes understanding. States Tylenol did help with her discomfort. She will be discharged home to follow up with her PCP for further evaluation and treatment as needed. Return parameters discussed in detail. Medical Decision Making - Medical Decision Making 76-year-old female with a past medical history of orthopedic surgeries, depression, and restless leg syndrome presents to the emergency department for evaluation of head injury sustained Saturday night in a trip and fall. She does not take any blood thinning medicines. Patient did not have any loss of consciousness or focal neurological deficits. She has experienced mild nausea and occasional headache since the injury. She does have a small scalp hematoma. Patient was given Tylenol with improvement. X-ray of the right foot was obtained due to concerns of possible injury in her fall. There was no acute findings in her x-ray. CT of the brain and C-spine was obtained with no acute findings. Patient is given head injury precautions and encouraged to follow up with her PCP when she returns home to [place]. Strict return parameters were discussed in detail. Patient verbalizes understanding and agrees with this plan. Attending: Mai - Radiology Data Radiology results: report reviewed, image reviewed Interpreted by me: X-ray shows no acute changes in the right foot. Hardware present. CT of the brain and C-spine was obtained. Report was reviewed in its entirety. Impression per Dr. Godinez is mild cervical multilevel spondylitic changes. No fracture. Mild cerebral atrophy and chronic small vessel ischemia. No acute intracranial abnormality. X-ray of the right foot was obtained. Report was reviewed in its entirety. Impression per Dr. Godinez is previous surgery of the proximal metatarsals. No acute bony abnormality. Disposition Clinical Impression: Head injury, Hematoma of scalp, Foot pain, right Disposition: HOME SELF-CARE Condition: Stable Instructions (If sedation given, give patient instructions): Head Injury (ED) Additional Instructions: Continue to take your home medications as prescribed. Tylenol may be taken for pain. Apply ice to swollen area on scalp if needed for discomfort. If you develop any dizziness or blurry vision you should return to the emergency department. Follow-up with your PCP for a recheck when you return to [place]. Is patient prescribed a controlled substance at d/c from ED?: No Referrals: None,Stated [Primary Care Provider] - 1-2 days Time of Disposition: 17:45
--- NOTE | 2022-03-16 17:10 | CT ---
EXAMINATION TYPE: CT brain magdalena eason DATE OF EXAM: 03/16/2022 COMPARISON: HISTORY: Fall. CT DLP: 1736.5 mGycm Automated exposure control for dose reduction was used. CT scan of the brain. There is cerebral cortical atrophy. There is no mass effect or midline shift. No sign of intracranial hemorrhage. Calvarium is intact. There is mild hypodensity in the periventricular white matter. Cervical vertebra have normal alignment. There is disc space narrowing from C3 to T1 with spurring of the endplates. There is minor spurring of the facet joints. No compression fracture. No subluxation. Prevertebral soft tissues are intact. IMPRESSION: Mild cervical multilevel spondylotic changes. No fracture. Mild cerebral atrophy and chronic small vessel ischemia. No acute intracranial abnormality.
--- NOTE | 2022-03-16 17:18 | XR ---
EXAMINATION TYPE: XR foot complete RT DATE OF EXAM: 03/16/2022 COMPARISON: NONE HISTORY: Fall. Pain TECHNIQUE: 3 views FINDINGS: There are plates with screws fixing the proximal first second and third metatarsals. There are 2 screws in the fifth metatarsal. There is mild plantar calcaneal spurring. No acute fracture see n. There is a mild forefoot varus. There is some spurring at the tarsometatarsal joints. IMPRESSION: Previous surgery at the proximal metatarsals. No acute bony abnormality.
[2022-03-16 18:29] VITALS: BP 138/86; PULSE 86
== END 2022-03-16 18:29 | disposition home or self-care (01) ==
LOC: EC 12:58
DX: S00.03XA Contusion of scalp, initial encounter (principal); M79.671 Pain in right foot; J45.909 Unspecified asthma, uncomplicated; E07.9 Disorder of thyroid, unspecified; M19.90 Unspecified osteoarthritis, unspecified site; Z87.891 Personal history of nicotine dependence; Z79.890 Hormone replacement therapy; Z79.82 Long term (current) use of aspirin; Z79.899 Other long term (current) drug therapy; V48.4XXA Person boarding or alighting a car injured in noncollision transport accident, initial encounter; Y92.89 Other specified places as the place of occurrence of the external cause
CPT/HCPCS: 70450; 72125; 99284

== ENCOUNTER 2022-11-04 08:54 | Emergency (ER) | payer MEDICARE ==
[2022-11-04 08:59] VITALS: RESP 18
--- NOTE | 2022-11-04 09:36 | ED ---
General Adult HPI - General Chief complaint: Extremity Injury, Lower Stated complaint: bilateral lower extremity edema Time Seen by Provider: 11/04/22 09:15 Source: patient, RN notes reviewed, old records reviewed Mode of arrival: ambulatory Limitations: no limitations - History of Present Illness Initial comments: This is a 77-year-old female presents emergency Department complaining of swelling to her legs bilaterally. Patient states she did start Norvasc about a month ago. Patient states she also noticed a rash since last night just above her sock line bilaterally it does not niraj with pressing and it does not itch it does not bother her except the fact that is there and it is abnormal for her. Patient denies any fever chills per patient has any calf tenderness. Patient denies any other symptoms at this time. - Related Data Home Medications Medication Instructions Recorded Confirmed ARIPiprazole [Abilify] 1 mg PO DAILY 10/17/20 10/16/21 Albuterol Sulfate [Ventolin HFA] 2 puff INHALATION RT-QID PRN 10/17/20 10/16/21 Artificial Tears-Hypromellose 1 drop BOTH EYES HS 10/17/20 10/16/21 [Artificial Tear Drops] Brimonidine Tartrate [Alphagan P 1 drop LEFT EYE BID 10/17/20 10/16/21 0.1% Ophth Soln] DULoxetine HCL [Cymbalta] 60 mg PO DAILY 10/17/20 10/16/21 Diclofenac Sodium [Voltaren] 50 mg PO BID 10/17/20 10/16/21 Divalproex ER [Depakote ER] 500 mg PO HS 10/17/20 10/16/21 Fluticasone Propion/Salmeterol 1 puff INHALATION RT-BID 10/17/20 10/16/21 [Advair 250-50 Diskus] Levothyroxine Sodium [Synthroid] 100 mcg PO DAILY 10/17/20 10/16/21 Omeprazole 40 mg PO DAILY PRN 10/17/20 10/16/21 Travoprost [Travatan Z 0.004%] 1 drop BOTH EYES HS 10/17/20 10/16/21 Vit C/E/Zn/Coppr/Lutein/Zeaxan 1 cap PO BID 10/17/20 10/16/21 [Preservision Areds 2 Softgel] lamoTRIgine [LaMICtal] 50 mg PO DAILY 10/17/20 10/16/21 rOPINIRole HCL [Requip] 2 mg PO HS 10/17/20 10/16/21 Pilocarpine [Salagen] 5 mg PO TID 10/10/21 10/16/21 Aspirin [[place] Aspirin EC] 81 mg PO DAILY 10/11/21 10/11/21 Cholecalciferol [Vitamin D3 (25 50 mcg PO DAILY 10/11/21 10/11/21 Mcg = 1000 Iu)] Allergies Allergy/AdvReac Type Severity Reaction Status Date / Time lisinopril Allergy Swelling Verified 11/04/22 08:59 Review of Systems ROS Statement: Those systems with pertinent positive or pertinent negative responses have been documented in the HPI. ROS Other: All systems not noted in ROS Statement are negative. Past Medical History Past Medical History: Asthma, Osteoarthritis (OA), Thyroid Disorder Additional Past Medical History / Comment(s): restless legs syndrome, History of Any Multi-Drug Resistant Organisms: ESBL, MRSA Date of last positivie culture/infection: 09/18/18-MRSA; 05/05/18-ESBL MDRO Source:: Lip-MRSA; ESBL URINE Past Surgical History: Back Surgery, Orthopedic Surgery, Tonsillectomy Additional Past Surgical History / Comment(s): bilateral foot surgery, bilateral shoulder, bilateral knee surgeries. Four back surgeries last one Feb 2022 Past Anesthesia/Blood Transfusion Reactions: No Reported Reaction Past Psychological History: Depression Smoking Status: Former smoker Past Alcohol Use History: None Reported Past Drug Use History: None Reported General Exam - General Exam Comments Initial Comments: GENERAL: Patient is well-developed and well-nourished. Patient is nontoxic and well- hydrated and is in no acute distress. ENT: Neck is soft and supple. No significant lymphadenopathy is noted. Oropharynx is clear. Moist mucous membranes. Neck has full range of motion without eliciting any pain. EYES: The sclera were anicteric and conjunctiva were pink and moist. Extraocular movements were intact and pupils were equal round and reactive to light. Eye lids were unremarkable. PULMONARY: Unlabored respirations. Good breath sounds bilaterally. No audible rales rhonchi or wheezing was noted. CARDIOVASCULAR: There is a regular rate and rhythm without any murmurs gallops or rubs. ABDOMEN: Soft and nontender with normal bowel sounds. SKIN: Patient is a nonblanching rash circumferential around the ankle just above the sock line she's very erythematous but not warm and there are some satellite lesions above the confluent areas. NEUROLOGIC: Patient is alert and oriented x3. Cranial nerves II through XII are grossly intact. Motor and sensory are also intact. Normal speech, volume and content. Symmetrical smile. MUSCULOSKELETAL: Normal extremities with adequate strength and full range of motion. 1+ edema bilaterally LYMPHATICS: No significant lymphadenopathy is noted PSYCHIATRIC: Normal psychiatric evaluation. Limitations: no limitations Course Vital Signs 11/04/22 11/04/22 08:55 10:11 Temperature 98.1 F Pulse Rate 74 72 Respiratory 18 18 Rate Blood Pressure 156/81 141/82 O2 Sat by Pulse 96 95 Oximetry Medical Decision Making - Medical Decision Making Was pt. sent in by a medical professional or institution (, PA, [employer], urgent care, hospital, or snf...) When possible be specific @ -No Did you speak to anyone other than the patient for history (EMS, parent, family, police, friend...)? What history was obtained from this source @ -No Did you review nursing and triage notes (agree or disagree)? Why? @ -I reviewed and agree with nursing and triage notes Were old charts reviewed (outside hosp., previous admission, EMS record, old EKG, old radiological studies, urgent care reports/EKG's, snf records)? Report findings @ -No old charts were reviewed Differential Diagnosis (chest pain, altered mental status, abdominal pain women, abdominal pain men, vaginal bleeding, weakness, fever, dyspnea, syncope, headache, dizziness, GI bleed, back pain, seizure, CVA, palpatations, mental health, musculoskeletal)? @ -Cellulitis, viral exanthem, drug reaction, vasculitis, she is not all inclusive list EKG interpreted by me (3pts min.). @ -As above X-rays interpreted by me (1pt min.). @ -None done CT interpreted by me (1pt min.). @ -None done U/S interpreted by me (1pt. min.). @ -None done What testing was considered but not performed or refused? (CT, X-rays, U/S, labs)? Why? @ -None What meds were considered but not given or refused? Why? @ -None Did you discuss the management of the patient with other professionals (professionals i.e. DrHortensia, PA, [employer], lab, RT, psych nurse, social insurance specialist, communication skills instructor, teacher, chief nursing officer, sample case porter)? Give summary @ -No Was smoking cessation discussed for >3mins.? @ -No Was critical care preformed (if so, how long)? @ -No Were there social determinants of health that impacted care today? How? (Homelessness, low income, unemployed, alcoholism, drug addiction, transportation, low edu. Level, literacy, decrease access to med. care, detention, rehab)? @ -No Was there de-escalation of care discussed even if they declined (Discuss DNR or withdrawal of care, Hospice)? DNR status @ -No What co-morbidities impacted this encounter? (DM, HTN, Smoking, COPD, CAD, Cancer, CVA, ARF, Chemo, Hep., AIDS, mental health diagnosis, sleep apnea, morbid obesity)? @ -None Was patient admitted / discharged? Hospital course, mention meds given and route, prescriptions, significant lab abnormalities, going to OR and other pertinent info. @ -Patient's swelling is likely due to the new prescription for Norvasc. 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 The excessive exercise yesterday and the fact the rash ends at the sock line with the additional swelling from the Norvasc I think treatment for her vasculitis she will follow-up with primary medical care doctor Undiagnosed new problem with uncertain prognosis? @ -No Drug Therapy requiring intensive monitoring for toxicity (Heparin, Nitro, Insulin, Cardizem)? @ -No Were any procedures done? @ -No Diagnosis/symptom? @ -Vasculitis Acute, or Chronic, or Acute on Chronic? @ -Acute Uncomplicated (without systemic symptoms) or Complicated (systemic symptoms)? @ -Uncomplicated Side effects of treatment? @ -No Exacerbation, Progression, or Severe Exacerbation? @ -No Poses a threat to life or bodily function? How? (Chest pain, USA, [place], pneumonia, PE, COPD, DKA, ARF, appy, cholecystitis, CVA, Diverticulitis, Homicidal, Suicidal, threat to staff... and all critical care pts) @ -No Diagnosis/symptom? @ -Drug reaction Acute, or Chronic, or Acute on Chronic? @ -Acute Uncomplicated (without systemic symptoms) or Complicated (systemic symptoms)? @ -Uncomplicated Side effects of treatment? @ -none Exacerbation, Progression, or Severe Exacerbation] @ -no Poses a threat to life or bodily function? @ -no - Lab Data Result diagrams: 11/04/22 10:18 11/04/22 10:18 Lab Results 11/04/22 11/04/22 Range/Units 10:18 10:18 WBC 6.1 (3.8-10.6) k/uL RBC 4.03 (3.80-5.40) m/uL Hgb 11.6 (11.4-16.0) gm/dL Hct 36.0 (34.0-46.0) % MCV 89.3 (80.0-100.0) fL MCH 28.8 (25.0-35.0) pg MCHC 32.2 (31.0-37.0) g/dL RDW 14.9 (11.5-15.5) % Plt Count 469 H (150-450) k/uL MPV 7.7 Neutrophils % 59 % Lymphocytes % 25 % Monocytes % 11 % Eosinophils % 3 % Basophils % 1 % Neutrophils # 3.6 (1.3-7.7) k/uL Lymphocytes # 1.5 (1.0-4.8) k/uL Monocytes # 0.7 (0-1.0) k/uL Eosinophils # 0.2 (0-0.7) k/uL Basophils # 0.0 (0-0.2) k/uL Sodium 134 L (137-145) mmol/L Potassium 5.4 H (3.5-5.1) mmol/L Chloride 104 (98-107) mmol/L Carbon Dioxide 24 (22-30) mmol/L Anion Gap 6 mmol/L BUN 35 H (7-17) mg/dL Creatinine 0.66 (0.52-1.04) mg/dL Est GFR (CKD-EPI)AfAm >90 (>60 ml/min/1.73 sqM) Est GFR (CKD-EPI)NonAf 85 (>60 ml/min/1.73 sqM) Glucose 93 (74-99) mg/dL Calcium 9.2 (8.4-10.2) mg/dL Total Bilirubin 0.8 (0.2-1.3) mg/dL AST 30 (14-36) U/L ALT 20 (4-34) U/L Alkaline Phosphatase 89 (38-126) U/L C-Reactive Protein 1.2 H (<1.0) mg/dL Total Protein 6.4 (6.3-8.2) g/dL Albumin 3.5 (3.5-5.0) g/dL Disposition Clinical Impression: Vasculitis, Drug reaction Disposition: HOME SELF-CARE Instructions (If sedation given, give patient instructions): Acute Rash (ED), Adverse Drug Reaction (ED) Is patient prescribed a controlled substance at d/c from ED?: No Referrals: None,Stated [Primary Care Provider] - 1-2 days Time of Disposition: 20:00
[2022-11-04 10:39] LABS: Basophils % (A) 1 %; Eosinophils # (A) 0.2 k/uL (0-0.7); Eosinophils % (A) 3 %; HGB 11.6 gm/dL (11.4-16.0); Lymphocytes # (A) 1.5 k/uL (1.0-4.8); Lymphocytes % (A) 25 %; MCH 28.8 pg (25.0-35.0); MCHC 32.2 g/dL (31.0-37.0); MCV 89.3 fL (80.0-100.0); Mean Platelet Volume 7.7; Monocytes # (A) 0.7 k/uL (0-1.0); Monocytes % (A) 11 %; Neutrophils # (A) 3.6 k/uL (1.3-7.7); Neutrophils % (A) 59 %; Platelet Count 469 k/uL (150-450); RBC 4.03 m/uL (3.80-5.40); RDW 14.9 % (11.5-15.5); WBC 6.1 k/uL (3.8-10.6)
[2022-11-04 10:59] LABS: ALT 20 U/L (4-34); AST 30 U/L (14-36); African American GFR (CKD) >90 (>60 ml/min/1.73 sqM); Albumin 3.5 g/dL (3.5-5.0); Alkaline Phosphatase 89 U/L (38-126); Anion Gap 6 mmol/L; Blood Urea Nitrogen 35 mg/dL (7-17); C Reactive Protein 1.2 mg/dL (<1.0); Calcium 9.2 mg/dL (8.4-10.2); Carbon Dioxide 24 mmol/L (22-30); Chloride 104 mmol/L (98-107); Glucose 93 mg/dL (74-99); Non-African American GFR(CKD) 85 (>60 ml/min/1.73 sqM); Potassium 5.4 mmol/L (3.5-5.1); Sodium 134 mmol/L (137-145); Total Bilirubin 0.8 mg/dL (0.2-1.3); Total Protein 6.4 g/dL (6.3-8.2)
[2022-11-04 11:45] VITALS: BP 144/86; PULSE 74; TEMP 97.7
== END 2022-11-04 11:43 | disposition home or self-care (01) ==
LOC: EC 08:54
DX: I77.6 Arteritis, unspecified (principal); T46.1X5A Adverse effect of calcium-channel blockers, initial encounter; J45.909 Unspecified asthma, uncomplicated; E07.9 Disorder of thyroid, unspecified; M19.90 Unspecified osteoarthritis, unspecified site; F32.A Depression, unspecified; Z87.891 Personal history of nicotine dependence; Z88.8 Allergy status to other drugs, medicaments and biological substances; Z79.890 Hormone replacement therapy; Z79.51 Long term (current) use of inhaled steroids; Z79.899 Other long term (current) drug therapy
CPT/HCPCS: 36415; 80053; 85025; 86140; 99283

== ENCOUNTER → 2023-10-21 | Outpatient (CLI) | payer MEDICARE ==
[2023-10-21 14:18] VITALS: BP 147/74; PULSE 84; RESP 16; TEMP 97.4
[2023-10-21] MEDS: IRON SUCROSE 200 MG in SODIUM CHLORIDE 0.9% 100 ML IVPB NR (14:20)
[2023-10-21] MEDS: SODIUM CHLORIDE 0.9% 500 ML 500 ML in EMPTY BAG 1 BAG IV PRN (14:21)
== END ==
LOC: PROCWHC3 14:07
PROVIDERS: ATTEND Family Medicine
DX: D50.9 Iron deficiency anemia, unspecified (principal)
CPT/HCPCS: 96365; J1756

== ENCOUNTER 2023-11-18 15:18 | Emergency (ER) | payer MEDICARE ==
[2023-11-18 15:36] VITALS: RESP 18; TEMP 98.1
--- NOTE | 2023-11-18 16:19 | ED ---
Lower Extremity Injury HPI - General Chief Complaint: Extremity Injury, Lower Stated Complaint: leg brusing Time Seen by Provider: 11/18/23 15:31 Source: patient, RN notes reviewed Mode of arrival: ambulatory Limitations: no limitations - History of Present Illness Initial Comments: 78-year-old female presents with chief complaint of left lower extremity pain and bruising. Patient states that she has a history of DVT is concerned that she may have a blood clot in the left lower extremity. States that she has pain in the left leg the left hip and groin. She denies recent prolonged travel. Currently she denies shortness of breath, difficulty breathing, chest pain, chest pressure, palpitations, dizziness, lightheadedness. Patient has a recent history of a spinal fusion completed in the morning. Denies any recent injury or falls, saddle anesthesias or loss of bladder or bowel continence. - Related Data Home Medications Medication Instructions Recorded Confirmed ARIPiprazole [Abilify] 1 mg PO DAILY 10/17/20 10/21/23 Albuterol Sulfate [Ventolin HFA] 2 puff INHALATION RT-QID PRN 10/17/20 10/21/23 Artificial Tears-Hypromellose 1 drop BOTH EYES HS 10/17/20 10/21/23 [Artificial Tear Drops] Brimonidine Tartrate [Alphagan P 1 drop LEFT EYE BID 10/17/20 10/21/23 0.1% Ophth Soln] DULoxetine HCL [Cymbalta] 60 mg PO DAILY 10/17/20 10/21/23 Diclofenac Sodium [Voltaren] 50 mg PO BID 10/17/20 10/21/23 Divalproex ER [Depakote ER] 500 mg PO HS 10/17/20 10/21/23 Fluticasone Propion/Salmeterol 1 puff INHALATION RT-BID 10/17/20 10/21/23 [Advair 250-50 Diskus] Levothyroxine Sodium [Synthroid] 100 mcg PO DAILY 10/17/20 10/21/23 Omeprazole 40 mg PO DAILY PRN 10/17/20 10/21/23 Travoprost [Travatan Z 0.004%] 1 drop BOTH EYES HS 10/17/20 10/21/23 Vit C/E/Zn/Coppr/Lutein/Zeaxan 1 cap PO BID 10/17/20 10/21/23 [Preservision Areds 2 Softgel] lamoTRIgine [LaMICtal] 50 mg PO DAILY 10/17/20 10/21/23 rOPINIRole HCL [Requip] 2 mg PO HS 10/17/20 10/21/23 Pilocarpine [Salagen] 5 mg PO TID 10/10/21 10/21/23 Aspirin [[place] Aspirin EC] 81 mg PO DAILY 10/11/21 10/21/23 Cholecalciferol [Vitamin D3 (25 50 mcg PO DAILY 10/11/21 10/21/23 Mcg = 1000 Iu)] Allergies Allergy/AdvReac Type Severity Reaction Status Date / Time gabapentin Allergy Unknown Verified 11/18/23 15:36 lisinopril Allergy Swelling Verified 11/18/23 15:36 Review of Systems ROS Statement: Those systems with pertinent positive or pertinent negative responses have been documented in the HPI. ROS Other: All systems not noted in ROS Statement are negative. Past Medical History Past Medical History: Asthma, Osteoarthritis (OA), Thyroid Disorder Additional Past Medical History / Comment(s): restless legs syndrome, History of Any Multi-Drug Resistant Organisms: ESBL, MRSA Date of last positivie culture/infection: 09/18/18-MRSA; 05/05/18-ESBL MDRO Source:: Lip-MRSA; ESBL URINE Past Surgical History: Back Surgery, Orthopedic Surgery, Tonsillectomy Additional Past Surgical History / Comment(s): bilateral foot surgery, bilateral shoulder, bilateral knee surgeries. Four back surgeries last one Feb 2022, spinal fusion, Past Anesthesia/Blood Transfusion Reactions: No Reported Reaction Past Psychological History: Depression Smoking Status: Never smoker Past Alcohol Use History: None Reported Past Drug Use History: None Reported General Exam - General Exam Comments Initial Comments: Visual Physical Exam Vital signs reviewed General: Well-appearing, nontoxic, no acute distress. Head: Normocephalic, atraumatic Eyes: PERRLA, EOMI ENT: Airway patent Chest: Nonlabored breathing Skin: No visual rash, normal skin tone Neuro: Alert and oriented 3 Musculoskeletal: No gross abnormalities Limitations: no limitations General appearance: alert, in no apparent distress Head exam: Present: atraumatic, normocephalic, normal inspection Eye exam: Present: normal appearance, PERRL, EOMI. Absent: scleral icterus, conjunctival injection, periorbital swelling ENT exam: Present: normal exam, mucous membranes moist Neck exam: Present: normal inspection. Absent: tenderness, meningismus, lymphadenopathy Respiratory exam: Present: normal lung sounds bilaterally. Absent: respiratory distress, wheezes, rales, rhonchi, stridor Cardiovascular Exam: Present: regular rate, normal rhythm, normal heart sounds. Absent: systolic murmur, diastolic murmur, rubs, gallop, clicks GI/Abdominal exam: Present: soft, normal bowel sounds. Absent: distended, tenderness, guarding, rebound, rigid Left Lower Leg exam: Present: full ROM, tenderness (lateral and posterior calf), ecchymosis (multiple small areas of brusing over the lateral leg). Absent: swelling, abrasion, erythema, palpable cord, Homans' sign Neurovascular tendon exam: Present: no vascular compromise. Absent: pulse deficit, abnormal cap refill, sensory deficit Gait: observed and normal Back exam: Present: normal inspection Neurological exam: Present: alert, oriented X3, CN II-XII intact Psychiatric exam: Present: normal affect, normal mood Skin exam: Present: warm, dry, intact, normal color. Absent: rash Course Vital Signs 11/18/23 11/18/23 15:32 18:42 Temperature 98.1 F 98.1 F Pulse Rate 78 68 Respiratory 18 18 Rate Blood Pressure 125/79 136/76 O2 Sat by Pulse 98 99 Oximetry Medical Decision Making - Medical Decision Making Was pt. sent in by a medical professional or institution (, PA, ORTHO RN, urgent care, hospital, or [facility]...) When possible be specific @ -No Did you speak to anyone other than the patient for history (EMS, parent, family, police, friend...)? What history was obtained from this source @ -No Did you review nursing and triage notes (agree or disagree)? Why? @ -I reviewed and agree with nursing and triage notes Were old charts reviewed (outside hosp., previous admission, EMS record, old EKG, old radiological studies, urgent care reports/EKG's, [facility] records)? Report findings @ -No old charts were reviewed Differential Diagnosis (chest pain, altered mental status, abdominal pain women, abdominal pain men, vaginal bleeding, weakness, fever, dyspnea, syncope, headache, dizziness, GI bleed, back pain, seizure, CVA, palpatations, mental health, musculoskeletal)? @ -deep vein thrombosis, superficial thrombophlebitis, ecchymosis, muscle strain, leg pain, this list is not all inclusive EKG interpreted by me (3pts min.). @ -None X-rays interpreted by me (1pt min.). @ -Xr of the left hip and AP pelvis reveals no evidence for acute process, mild hip osteoarthrosis. CT interpreted by me (1pt min.). @ -None done U/S interpreted by me (1pt. min.). @ -duplex ultrasound left lower extremity is negative for DVT What testing was considered but not performed or refused? (CT, X-rays, U/S, labs)? Why? @ -None What meds were considered but not given or refused? Why? @ -None Did you discuss the management of the patient with other professionals (professionals i.e. , PA, ORTHO RN, lab, RT, psych nurse, oncology social work, sharepoint web developer, teacher, service officer, pillowcase cutter)? Give summary @ -No Was smoking cessation discussed for >3mins.? @ -No Was critical care preformed (if so, how long)? @ -No Were there social determinants of health that impacted care today? How? (Homelessness, low income, unemployed, alcoholism, drug addiction, tra nsportation, low edu. Level, literacy, decrease access to med. care, long term, rehab)? @ -No Was there de-escalation of care discussed even if they declined (Discuss DNR or withdrawal of care, Hospice)? DNR status @ -No What co-morbidities impacted this encounter? (DM, HTN, Smoking, COPD, CAD, Cancer, CVA, ARF, Chemo, Hep., AIDS, mental health diagnosis, sleep apnea, morbid obesity)? @ -None Was patient admitted / discharged? Hospital course, mention meds given and route, prescriptions, significant lab abnormalities, going to OR and other pertinent info. @ - Discharge. 78-year-old female with left leg and hip pain. On examination there is mild ecchymosis/bruising of the lateral left lower extremity. There are no palpable masses, negative Homans' sign. Patient denies provide symptoms such as loss of bladder or bowel continence or saddle anesthesias. She is resting comfortably in the room on examination. Ultrasound and x-ray negative. Recommend that patient follows up with her primary care physician for further evaluation. All questions answered at bedside and strict return parameters ute with patient she is verbalized understanding. Discussed with Dr. Andrew Undiagnosed new problem with uncertain prognosis? @ -No Drug Therapy requiring intensive monitoring for toxicity (Heparin, Nitro, Insulin, Cardizem)? @ -No Were any procedures done? @ -No Diagnosis/symptom? @ -leg pain, left hip pain Acute, or Chronic, or Acute on Chronic? @ -Acute Uncomplicated (without systemic symptoms) or Complicated (systemic symptoms)? @ -uncomplicated Side effects of treatment? @ -No Exacerbation, Progression, or Severe Exacerbation? @ -No Poses a threat to life or bodily function? How? (Chest pain, [place], [place], pneumonia, PE, COPD, DKA, ARF, appy, cholecystitis, CVA, Diverticulitis, Homicidal, Suicidal, threat to staff... and all critical care pts) @ -No Disposition Clinical Impression: Left leg pain, Hip pain Disposition: HOME SELF-CARE Condition: Good Instructions (If sedation given, give patient instructions): Leg Pain (ED) Additional Instructions: return to the emergency department for any new or worsening symptoms. Is patient prescribed a controlled substance at d/c from ED?: No Referrals: Dawn Sinclair MD [Primary Care Provider] - 1-2 days Time of Disposition: 18:26
--- NOTE | 2023-11-18 16:45 | XR ---
EXAMINATION TYPE: XR Hip LT and AP Pelvis DATE OF EXAM: 11/18/2023 4:39 PM CLINICAL INDICATION:Female, 78 years old with history of pain; PH[facility] COMPARISON: None. TECHNIQUE: XR Hip LT and AP Pelvis; hip was examined in the frontal and lateral projections and a AP pelvis. FINDINGS: No evidence for acute process, joint dislocation or significant soft tissue swelling. Osteo phyte formation of the superior acetabulum of the hip. There is mild joint space narrowing. Right low er quadrant cylindrical suture. Degeneration changes of the spine with osteophyte formation disc spac e narrowing. IMPRESSION: 1. No evidence for acute process. 2. Mild hip osteoarthrosis.
--- NOTE | 2023-11-18 17:43 | US ---
EXAMINATION TYPE: US venous doppler duplex LE LT DATE OF EXAM: 11/18/2023 4:19 PM COMPARISON: CLINICAL INDICATION: Female, 78 years old with history of pain, swelling, hx DVT; Patient states havi ng hx of DVT in left leg. No redness or swelling. Bruising left lateral calf. No injury. Not on bl ood thinners. SIDE PERFORMED: Left TECHNIQUE: The lower extremity deep venous system is examined utilizing real time linear array sonog oseas with graded compression, doppler sonography and color-flow sonography. VESSELS IMAGED: Common Femoral Vein Deep Femoral Vein Greater Saphenous Vein * Femoral Vein Popliteal Vein Small Saphenous Vein * Proximal Calf Veins (* superficial vessels) Left Leg: Negative for DVT IMPRESSION: Grayscale, color doppler, spectral doppler imaging performed of the deep veins of the lo wer extremities. There is normal flow, compressibility, vascular waveforms.
[2023-11-18 18:43] VITALS: BP 136/76; PULSE 68
== END 2023-11-18 18:42 | disposition home or self-care (01) ==
LOC: EC 15:18
DX: M79.662 Pain in left lower leg (principal); S80.12XA Contusion of left lower leg, initial encounter; M16.12 Unilateral primary osteoarthritis, left hip; Z88.8 Allergy status to other drugs, medicaments and biological substances; X58.XXXA Exposure to other specified factors, initial encounter
CPT/HCPCS: 73502; 99284

== ENCOUNTER → 2023-12-30 | Outpatient (CLI) | payer MEDICARE ==
--- NOTE | 2023-12-30 19:20 | MR ---
EXAMINATION TYPE: MR cervical spine wo con DATE OF EXAM: 12/30/2023 7:08 PM CLINICAL INDICATION: Female, 78 years old with history of M54.2 Cervicalgia; COMPARISON: 11/24/2023. TECHNIQUE: Multi planar, multi sequence imaging was performed utilizing: T1-weighted, T2-weighted, an d turbo inversion recovery imaging of the cervical spine. IV Contrast: cc (none if empty) FINDINGS: Alignment: The cervical vertebral bodies have preserved heights. Alignment is within normal limits gi lara patient positioning. Bones: Osteophytes and disc space narrowing most pronounced at the C5-C7 vertebral levels. Cord: The spinal cord is unremarkable with regards to their signal intensity and morphology. Discs: Intervertebral disc signal is maintained. C2-C3: No significant disc pathology. The spinal canal is patent. Bilateral facet and uncovertebral joint arthropathy are present with mild bilateral neural foraminal stenosis. C3-C4: A disc osteophyte complex is present which minimally narrows the ventral subarachnoid space. Bilateral facet and uncovertebral joint arthropathy are present with mild bilateral neural foraminal stenosis. C4-C5: A disc osteophyte complex is present with mild spinal canal stenosis. Bilateral facet and unc overtebral joint arthropathy are present with mild bilateral neural foraminal stenosis. C5-C6: A eccentric right disc osteophyte complex is present with mild spinal canal stenosis. Bilater al facet and uncovertebral joint arthropathy are present with moderate bilateral neural foraminal aga nosis. C6-C7: A disc osteophyte complex is present which minimally narrows the ventral subarachnoid space. Bilateral facet and uncovertebral joint arthropathy are present with mild bilateral neural foraminal stenosis. C7-T1: No significant disc pathology. The spinal canal is patent. No neural foraminal stenosis. Other: None. IMPRESSION: 1. No evidence for demyelination. No evidence for disc herniation or significant spinal canal stenosi s. 2. Mild to moderate disc degeneration with associated osteoarthritic changes.
== END | disposition home or self-care (01) ==
LOC: RADMRIMAIN 18:24
PROVIDERS: ATTEND Orthopaedic Surgery
DX: M54.2 Cervicalgia
CPT/HCPCS: 72141

== ENCOUNTER → 2024-05-19 | Outpatient (CLI) | payer MEDICARE ==
--- NOTE | 2024-05-19 15:40 | MM ---
Reason for Exam: Screening (asymptomatic). Last mammogram was performed 2 year(s) and 7 month(s) ago. Patient History: Menarche at age 12. Patient has no children. Postmenopausal. 10/16/2021, Benign MG stereo VAD BX RT on the right side. Risk Values: Sherley 5 year model risk: 2.2%. NCI Lifetime model risk: 3.7%. Prior Study Comparison: 02/16/2021 Right MG diagnostic mammo RT w CAD - 2, [facility]. 06/13/2021 Right MG diagnostic mammo RT w CAD - 2, [facility]. 10/10/2021 Bilateral MG 3D diag mammo w/cad [facility], [facility]. Tissue Density: There are scattered areas of fibroglandular density. Findings: Analyzed By CAD. Right breast: There is no suspicious group of microcalcifications or new suspicious mass. Left breast: Left lateral CC view approximate 14.9 cm the nipple is a small probable lymph node measuring up to 6 mm not definitively seen on prior CT views or smaller compared to prior. Further evaluation with exaggerated views recommended as this is not definitely seen on priors. Overall Assessment: Incomplete: need additional imaging evaluation, BI-RAD 0 Management: Diagnostic Mammogram of the left breast. Diagnostic Breast Ultrasound of the left breast. [facility] will attempt to contact patient to return for supplemental views and ultrasound if indicated. Patient should continue monthly self-breast exams. A clinical breast exam by your physician is recommended on an annual basis. This exam should not preclude additional follow-up of suspicious palpable abnormalities. Note on Sherley scores and lifetime risk: 1. A Sherley score greater than 3% is considered moderate risk. If this is the case, consider specialist referral to assess eligibility for a risk reducing agent. 2. If overall lifetime risk for the development of breast cancer is 20% or higher, the patient may qualify for future screening with alternating mammogram and breast MRI. [facility], , 05/19/2024 3:37 PM. Electronically signed and approved by: Dany Cid DO
== END | disposition home or self-care (01) ==
LOC: RADMAMWWP 13:41
PROVIDERS: ATTEND Family Medicine
DX: Z12.31 Encounter for screening mammogram for malignant neoplasm of breast (principal); R92.323 Mammographic fibroglandular density, bilateral breasts; Z78.0 Asymptomatic menopausal state
CPT/HCPCS: 77063; 77067

== ENCOUNTER 2024-08-16 19:57 | Outpatient (CLI) | payer MEDICARE ==
--- NOTE | 2024-08-24 22:12 | P.PCN ---
Date of Procedure: 08/16/24 Operative Findings: Polysomnography report History This is an 79-year-old female patient diagnosed with obstructive sleep apnea more than 10 years ago. I do not have any official documentation of the original polysomnography done on this patient. However, the patient stated that she has not seen any major benefit from CPAP therapy and there has been no impact on her sleep quality while being on or off treatment. She has a CPAP machine at home and she is using it on and off at a pressure of 8 cm of water. She denies having any major improvement in daytime functionality while being on CPAP therapy. She is not sure if she snores. She is currently living alone. Comorbidities include hypertension, hyperlipidemia, hypothyroidism, chronic back pain degenerative arthritis, depression. She has gained approximate pounds over the past 5 years. Physical findings The patient has a weight of 197 with a BMI of 36 Technical description The patient was studied using a standard complex polysomnography protocol that included recording of the Lead II EKG, Central, occipital and frontal EEG, right and left outer canthus EOG, submental EMG, right and left anterior tibialis EMG, respiratory airflow by thermocouple and or pressure/flow transducer, respiratory efforts by abdominal and thoracic PVDF belts, oxygen saturation by cable oximetry. Position by observation synchronized the PSG. Equipment used: [employer]. Sleep architecture The total recording duration was 452.5 minutes. The total sleep time was 323.0 minutes. The wake after sleep onset time was 45.5 minutes. The patient's latency to sleep onset was 78.5 minutes. The latency to REM sleep was 160.5 minutes. The sleep architecture was characterized by 30.2% stage I, 65.8% stage II, 0% stage III and 4% REM sleep. The total arousal index was 21 Respiratory analysis The patient had a total of 68 obstructive events of which 2 were obstructive apneas, 0 were mixed apneas and 66 were obstructive hypopneas. The resulting AHI was 11.7 consistent with mild obstructive sleep apnea. No central apneas were noted. In terms of oxygenation, the baseline pulse ox was 93% while awake. Lowest oxygen saturation during sleep was 84% and the patient spent approximately 4.5 minutes of the recording time and his current polysomnography below pulse ox of 89%. This accounted for 1% of the sleep study Arousal events The patient had total of 113 arousals with an index of 21 and the respiratory arousal index was 4.5 Periodic movement events There was a total of 263 periodic limb movement activity with a PLM index of 48.9. The PLM with arousals were 2 with a PLM arousal index of 0.4 Cardiac summary Average heart rate was 72 with a minimum heart rate of 68 and a maximum rate of 76 Assessment Mild obstructive sleep apnea with an AHI of 11.7, the patient has failed to respond to CPAP therapy in the past Chronic hypersomnia with an [place] score of 9 Snoring Mild nocturnal oxygen desaturations Abnormal sleep architecture with over representation of stage 1 and stage II sleep with diminished delta wave and REM Movement activity not causing significant sleep fragmentation the patient is known to have restless leg syndrome Hypertension Degenerative arthritis involving the lumbar spine Acid reflux Plan This is a case of mild obstructive sleep apnea. Nevertheless, there is considerable disturbance in the patient's sleep architecture with shifting of the sleep architecture 3 to earlier stage I or II. The arousal index from respiratory events is now high. Her response to CPAP therapy has been minimal. Arousals related to periodic limb movements was also minimal. Will treat all comorbidities. Suggest continuing CPAP therapy. Continue and encourage further weight loss. Will discuss those findings with the patient in the office. Will continue to follow.
== END 2024-08-17 08:56 | disposition home or self-care (01) ==
LOC: 3 N SLEEP 19:57
PROVIDERS: ATTEND Internal Medicine Critical Care Medicine
DX: G47.33 Obstructive sleep apnea (adult) (pediatric) (principal); I10 Essential (primary) hypertension; K21.9 Gastro-esophageal reflux disease without esophagitis; G25.81 Restless legs syndrome; M19.90 Unspecified osteoarthritis, unspecified site; Z88.8 Allergy status to other drugs, medicaments and biological substances; Z99.89 Dependence on other enabling machines and devices
CPT/HCPCS: 95810

== ENCOUNTER 2024-08-20 21:35 | Emergency (ER) | payer MEDICARE ==
[2024-08-20 21:46] VITALS: RESP 18
[2024-08-20] MEDS: ACETAMINOPHEN TAB 325 MG TAB PO STA (22:37)
--- NOTE | 2024-08-20 23:23 | ED ---
General Adult HPI - General Source: patient, RN notes reviewed Mode of arrival: ambulatory Limitations: no limitations <Sintia Gutierrez - Last Filed: 08/20/24 23:54> <Moise Campos - Last Filed: 08/21/24 00:50> - General Chief complaint: Fall Stated complaint: fall Time Seen by Provider: 08/20/24 21:49 - History of Present Illness Initial comments: 79-year-old female presenting to emergency department for complaints of a fall and facial injury. Patient states she was walking her house when she tripped over a rug causing her to fall onto her face and hitting her right knee and right shoulder. Patient denies loss of consciousness at the time of the fall, states that she was able to use a chair nearby to help herself stand. She is currently complaining of mild pain to her right knee and right shoulder. She denies dizziness, lightheadedness. Endorses pain over the anterior nose and forehead. Unaware when last tetanus vaccination was. Denies blood thinner use. (Sintia Gutierrez) - Related Data Home Medications Medication Instructions Recorded Confirmed ARIPiprazole [Abilify] 1 mg PO DAILY 10/17/20 10/21/23 Albuterol Sulfate [Ventolin HFA] 2 puff INHALATION RT-QID PRN 10/17/20 10/21/23 Artificial Tears-Hypromellose 1 drop BOTH EYES HS 10/17/20 10/21/23 [Artificial Tear Drops] Brimonidine Tartrate [Alphagan P 1 drop LEFT EYE BID 10/17/20 10/21/23 0.1% Ophth Soln] DULoxetine HCL [Cymbalta] 60 mg PO DAILY 10/17/20 10/21/23 Diclofenac Sodium [Voltaren] 50 mg PO BID 10/17/20 10/21/23 Divalproex ER [Depakote ER] 500 mg PO HS 10/17/20 10/21/23 Fluticasone Propion/Salmeterol 1 puff INHALATION RT-BID 10/17/20 10/21/23 [Advair 250-50 Diskus] Levothyroxine Sodium [Synthroid] 100 mcg PO DAILY 10/17/20 10/21/23 Omeprazole 40 mg PO DAILY PRN 10/17/20 10/21/23 Travoprost [Travatan Z 0.004%] 1 drop BOTH EYES HS 10/17/20 10/21/23 Vit C/E/Zn/Coppr/Lutein/Zeaxan 1 cap PO BID 10/17/20 10/21/23 [Preservision Areds 2 Softgel] lamoTRIgine [LaMICtal] 50 mg PO DAILY 10/17/20 10/21/23 rOPINIRole HCL [Requip] 2 mg PO HS 10/17/20 10/21/23 Pilocarpine [Salagen] 5 mg PO TID 10/10/21 10/21/23 Aspirin [Danielson Aspirin EC] 81 mg PO DAILY 10/11/21 10/21/23 Cholecalciferol [Vitamin D3 (25 50 mcg PO DAILY 10/11/21 10/21/23 Mcg = 1000 Iu)] Previous Rx's Medication Instructions Recorded Acetaminophen Tab [Tylenol Tab] 1,000 mg PO Q6HR #30 tablet 11/25/23 Allergies Allergy/AdvReac Type Severity Reaction Status Date / Time gabapentin Allergy Unknown Verified 11/24/23 20:24 lisinopril Allergy Swelling Verified 11/24/23 20:24 Review of Systems ROS Other: All systems not noted in ROS Statement are negative. <Sintia Gutierrez - Last Filed: 08/20/24 23:54> ROS Other: All systems not noted in ROS Statement are negative. <Moise Campos - Last Filed: 08/21/24 00:50> ROS Statement: Those systems with pertinent positive or pertinent negative responses have been documented in the HPI. Past Medical History Past Medical History: Asthma, Hyperlipidemia, Hypertension, Osteoarthritis (OA), Thyroid Disorder Additional Past Medical History / Comment(s): restless legs syndrome History of Any Multi-Drug Resistant Organisms: ESBL, MRSA Date of last positivie culture/infection: 09/18/18-MRSA; 05/05/18-ESBL MDRO Source:: Lip-MRSA; ESBL URINE Past Surgical History: Back Surgery, Orthopedic Surgery, Tonsillectomy Additional Past Surgical History / Comment(s): bilateral foot surgery, bilateral shoulder, bilateral knee surgeries. Four back surgeries last one Feb 2022, spinal fusion, Past Anesthesia/Blood Transfusion Reactions: No Reported Reaction Past Psychological History: Depression Smoking Status: Never smoker Past Alcohol Use History: None Reported Past Drug Use History: None Reported <Sintia Gutierrez - Last Filed: 08/20/24 23:54> General Exam Limitations: no limitations General appearance: alert, in no apparent distress Head exam: Present: other (Anterior nasal bridge skin abrasion, forehead skin abrasion measuring approximately 1 cm.) ENT exam: Present: normal exam, mucous membranes moist Neck exam: Present: normal inspection. Absent: tenderness, meningismus, lymphadenopathy Respiratory exam: Present: normal lung sounds bilaterally. Absent: respiratory distress, wheezes, rales, rhonchi, stridor Cardiovascular Exam: Present: regular rate, normal rhythm, normal heart sounds. Absent: systolic murmur, diastolic murmur, rubs, gallop, clicks GI/Abdominal exam: Present: soft, normal bowel sounds. Absent: distended, tenderness, guarding, rebound, rigid Right Shoulder Exam: Present: full ROM, tenderness. Absent: swelling, ecchymosis, deformity Right Knee exam: Present: full ROM, tenderness, swelling, ecchymosis. Absent: abrasion, laceration, deformity, dislocation Back exam: Present: normal inspection Skin exam: Present: warm, dry, intact, normal color. Absent: rash <Sintia Gutierrez - Last Filed: 08/20/24 23:54> Course Vital Signs 08/20/24 21:40 Temperature 97.6 F Pulse Rate 85 Respiratory 18 Rate Blood Pressure 133/78 O2 Sat by Pulse 95 Oximetry Medical Decision Making <Sintia Gutierrez - Last Filed: 08/20/24 23:54> - Medical Decision Making Was pt. sent in by a medical professional or institution ([facility], LIFT MANAGER, urgent care, hospital, or half-way...) When possible be specific @ -[No] Did you speak to anyone other than the patient for history (EMS, parent, family, police, friend...)? What history was obtained from this source @ -[No] Did you review nursing and triage notes (agree or disagree)? Why? @ -[I reviewed and agree with nursing and triage notes] Were old charts reviewed (outside hosp., previous admission, EMS record, old EKG, old radiological studies, urgent care reports/EKG's, half-way records)? Report findings @ -[No old charts were reviewed] Differential Diagnosis (chest pain, altered mental status, abdominal pain women, abdominal pain men, vaginal bleeding, weakness, fever, dyspnea, syncope, headache, dizziness, GI bleed, back pain, seizure, CVA, palpatations, mental health, musculoskeletal)? @ -Cervical spine fracture, cervical spine strain, skin abrasion, skin laceration, concussion, contusion, this list is not all inclusive EKG interpreted by me (3pts min.). @ -None X-rays interpreted by me (1pt min.). @ -[None done] CT interpreted by me (1pt min.). @ -[None done] U/S interpreted by me (1pt. min.). @ -[None done] What testing was considered but not performed or refused? (CT, X-rays, U/S, labs )? Why? @ -[None] What meds were considered but not given or refused? Why? @ -[None] Did you discuss the management of the patient with other professionals (professionals i.e. , PA, LIFT MANAGER, lab, RT, psych nurse, outreach and education social worker, cork insulator, teacher, classifications officer cc/cm, medical case worker)? Give summary @ -[No] Was smoking cessation discussed for >3mins.? @ -[No] Was critical care preformed (if so, how long)? @ -[No] Were there social determinants of health that impacted care today? How? (Homelessness, low income, unemployed, alcoholism, drug addiction, transportation, low edu. Level, literacy, decrease access to med. care, [facility], rehab)? @ -[No] Was there de-escalation of care discussed even if they declined (Discuss DNR or withdrawal of care, Hospice)? DNR status @ -[No] What co-morbidities impacted this encounter? (DM, HTN, Smoking, COPD, CAD, Cancer, CVA, ARF, Chemo, Hep., AIDS, mental health diagnosis, sleep apnea, morbid obesity)? @ -[None] Was patient admitted / discharged? Hospital course, mention meds given and route, prescriptions, significant lab abnormalities, going to OR and other pertinent info. @ -79-year-old female presenting to emergency department after fall. There are noted scant abrasions over the anterior nasal bridge and forehead, bleeding is controlled. Mild ecchymosis noted over the forehead as well. Patient is provided with dose of Tylenol for pain relief. Patient is signed out to Moise Campos PA-C, pending CT results and disposition. Undiagnosed new problem with uncertain prognosis? @ -[No] Drug Therapy requiring intensive monitoring for toxicity (Heparin, Nitro, Insulin, Cardizem)? @ -[No] Were any procedures done? @ -[No] Diagnosis/symptom? @ -[default] Acute, or Chronic, or Acute on Chronic? @ -[default] Uncomplicated (without systemic symptoms) or Complicated (systemic symptoms)? @ -[default] Side effects of treatment? @ -[No] Exacerbation, Progression, or Severe Exacerbation? @ -[No] Poses a threat to life or bodily function? How? (Chest pain, [place], VA, pneumonia, PE, COPD, DKA, ARF, appy, cholecystitis, CVA, Diverticulitis, Homicidal, Suicidal, threat to staff... and all critical care pts) @ -[No] (Sintia Gutierrez) Disposition <Sintia Gutierrez - Last Filed: 08/20/24 23:54> Is patient prescribed a controlled substance at d/c from ED?: No Time of Disposition: 00:50 <Moise Campos - Last Filed: 08/21/24 00:50> Clinical Impression: Fall, Head injury Disposition: HOME SELF-CARE Condition: Good Instructions (If sedation given, give patient instructions): Head Injury (ED) Additional Instructions: Follow-up with PCP. Report back to ER with any new or worsening symptoms. Take Tylenol as needed for pain. You may apply the bacitracin ointment twice daily to your facial abrasions to help with healing Referrals: Dawn Sinclair MD [Primary Care Provider] - 1-2 days
[2024-08-20] MEDS: DIPH,PERTUS(ACELL)TETVAC-LF 0.5 ML VIAL IM ONE (23:47)
--- NOTE | 2024-08-21 00:30 | CT ---
EXAM: CT Head Without Intravenous Contrast CLINICAL HISTORY: Pain TECHNIQUE: Axial computed tomography images of the head/brain without intravenous contrast. CTDI is 25.8 mGy and DLP is 772.5 mGy-cm. This CT exam was performed using one or more of the following dose reduction techniques: automated exposure control, adjustment of the mA and/or kV according to patient size, and/or use of iterative reconstruction technique. COMPARISON: 11/24/2023. FINDINGS: Brain: Age-appropriate generalized atrophy. No acute stroke. Mild supratentorial periventricular and subcortical white matter changes. No acute hemorrhage or abnormal extra-axial fluid collection. Ventricles: No hydrocephalus. No midline shift. Bones/joints: Unremarkable. No acute fracture. Soft tissues: Right frontal and paranasal subcutaneous soft tissue swelling. Sinuses: Unremarkable as visualized. No acute sinusitis. IMPRESSION: Right frontal and paranasal subcutaneous soft tissue swelling without an underlying fracture. No acute post-traumatic intracranial abnormality. EXAM: CT Cervical Spine Without Intravenous Contrast CLINICAL HISTORY: Pain TECHNIQUE: Axial computed tomography images of the cervical spine without intravenous contrast. CTDI is 19.2 mGy and DLP is 458.5 mGy-cm. This CT exam was performed using one or more of the following dose reduction techniques: automated exposure control, adjustment of the mA and/or kV according to patient size, and/or use of iterative reconstruction technique. COMPARISON: 11/24/2023. FINDINGS: Vertebrae: No acute fracture. Maintenance of height of the vertebral bodies. Unchanged 2 mm anterior subluxation of C3 on C4. Straightening of the normal cervical lordosis. Discs/spinal canal/neural foramina: Multilevel degenerative changes, greatest at C5-6 and C6-7. Soft tissues: Prevertebral soft tissues are unremarkable. IMPRESSION: Straightening of the normal cervical lordosis, most commonly seen with muscle spasm or positioning. Multilevel degenerative changes occluding chronic 2 mm anterior subluxation of C3 on C4.
--- NOTE | 2024-08-21 00:36 | CT ---
EXAM: CT Maxillofacial Without Intravenous Contrast CLINICAL HISTORY: Fall, abrasion/ecchymosis TECHNIQUE: Axial computed tomography images of the face without intravenous contrast. CTDI is 19.37 mGy and DLP is 458.5 mGy-cm. This CT exam was performed using one or more of the following dose reduction techniques: automated exposure control, adjustment of the mA and/or kV according to patient size, and/or use of iterative reconstruction technique. COMPARISON: No relevant prior studies available. FINDINGS: Bones/joints: No acute fracture. Soft tissues: Right frontal and paranasal subcutaneous soft tissue swelling.. Orbits: Unremarkable. Sinuses: Unremarkable. No air-fluid levels. IMPRESSION: Right frontal and paranasal subcutaneous soft tissue swelling without an underlying fracture.
--- NOTE | 2024-08-21 00:42 | XR ---
EXAM: XR Right Knee, 3 Views CLINICAL HISTORY: fall, abrasion/ecchymosis TECHNIQUE: Three views of the right knee. COMPARISON: No relevant prior studies available. FINDINGS: Bones/joints: Status post right knee bipolar arthroplasty in anatomic position. Status post retropatellar osteotomy. No acute fracture. No dislocation. Soft tissues: Unremarkable. IMPRESSION: No acute post-traumatic abnormality.
--- NOTE | 2024-08-21 00:43 | XR ---
EXAM: XR Right Shoulder Complete, 3 Views CLINICAL HISTORY: fall, pain TECHNIQUE: Three views of the right shoulder. COMPARISON: No relevant prior studies available. FINDINGS: Bones/joints: Status post left shoulder replacement in proximal humeral intramedullary holli in near-anatomic position. No acute fracture. No dislocation. Bones are osteopenic. Soft tissues: Unremarkable. IMPRESSION: No acute post-traumatic abnormality. Status post left shoulder replacement in proximal humeral intramedullary holli.
[2024-08-21] MEDS: BACITRACIN ZINC 500 UNIT/GM OINT 28.4 GM TUBE TOPICAL ONE (01:06)
[2024-08-21 01:10] VITALS: BP 124/75; PULSE 78; TEMP 97.7
== END 2024-08-21 01:10 | disposition home or self-care (01) ==
LOC: EC 21:35
DX: S00.31XA Abrasion of nose, initial encounter (principal); S00.81XA Abrasion of other part of head, initial encounter; S80.01XA Contusion of right knee, initial encounter; M25.511 Pain in right shoulder; Z88.8 Allergy status to other drugs, medicaments and biological substances; W01.0XXA Fall on same level from slipping, tripping and stumbling without subsequent striking against object, initial encounter; Y93.01 Activity, walking, marching and hiking; Y92.009 Unspecified place in unspecified non-institutional (private) residence as the place of occurrence of the external cause
CPT/HCPCS: 70450; 70486; 72125; 99284

== ENCOUNTER → 2024-09-03 | Outpatient (CLI) | payer MEDICARE ==
--- NOTE | 2024-09-04 12:56 | MR ---
EXAMINATION TYPE: MR lumbar spine wo/w con DATE OF EXAM: 09/03/2024 COMPARISON: Prior MRI lumbar spine December 08, 2010. CT abdomen and pelvis November 24, 2023 HISTORY: Lower back pain, falls. Prior surgery. TECHNIQUE: Multiplanar, multisequence images of the lumbar spine is performed without and with IV contrast, util izing 9 mL intravenous Gadobutrol FINDINGS: S-shaped scoliosis is present. Sagittal images of the lumbar spine show new moderate height loss posterior aspect of the L5 vertebra. There is mild to moderate anterior height loss involving t he T12 and L1 vertebra redemonstrated. There is persistent grade 1 anterolisthesis L5 on S1. There is multilevel disc desiccation and disc space narrowing in the lumbar spine. Advanced disc space narrow ing at L2-L3 level is redemonstrated. Moderate multilevel anterior spurring is seen. The conus medull michelle is low lying terminating at superior L2 level. Posterior decompression changes L3-L5 levels are redemonstrated. No suspicious postcontrast enhancement is seen. Axial images at T12-L1 level show posterior spurring and mild to moderate disc bulge effacing the ant erior thecal sac and mild facet arthropathy bilaterally. Bilateral neural foramina are patent. Axial images at L1-L2 level show posterior spur disc complex effacing the anterior thecal sac and mil [id number] facet arthropathy bilaterally. Bilateral neural foramina are patent. Axial images at L2-L3 level mild broad disc bulge and moderate facet arthropathy bilaterally. There i s spinous process resection. Spinal canal is preserved. There is mild asymmetric right-sided neural f oraminal narrowing due to foraminal disc herniation component. Axial images at the L3-L4 level moderate to advanced facet arthropathy bilaterally. There is mild-to- moderate broad disc bulge. Spinal canal is minimally effaced anteriorly. There is moderate bilateral neural foraminal narrowing seen. Posterior bilateral laminectomy defects and spinous process resectio n is noted. Axial images at the L4-L5 levels with advanced facet degenerative changes bilaterally. There is mild broad disc bulge. There are bilateral laminectomy defects and spinous process resection. There is mod erate bilateral neural foraminal narrowing. Axial images at L5-S1 level show advanced facet arthropathy bilaterally. There are bilateral laminect ha defects and spinous process resection. Spinal canal is preserved. There is advanced left and mode rate to advanced right-sided neural foraminal narrowing seen. The paraspinal muscle bulk is maintained. IMPRESSION: Posterior decompression changes in the lower lumbar spine are present. Multilevel degener ative changes are redemonstrated as detailed above. [facility], , 09/04/2024 12:54 PM
== END | disposition home or self-care (01) ==
LOC: RADMRIMAIN 13:27
PROVIDERS: ATTEND Orthopaedic Surgery
DX: M47.816 Spondylosis without myelopathy or radiculopathy, lumbar region (principal); M43.17 Spondylolisthesis, lumbosacral region; Z98.1 Arthrodesis status; W19.XXXA Unspecified fall, initial encounter
CPT/HCPCS: 72158; A9585

== ENCOUNTER → 2024-10-21 | Outpatient (CLI) | payer MEDICARE ==
[2024-10-21 10:45] LABS: African American GFR (CKD) >90 (>60 ml/min/1.73 sqM); Blood Urea Nitrogen 44 mg/dL (7-17); Non-African American GFR(CKD) 85 (>60 ml/min/1.73 sqM)
--- NOTE | 2024-10-21 12:58 | CT ---
EXAMINATION TYPE: CT chest w con DATE OF EXAM: 10/21/2024 11:14 AM COMPARISON: None. CLINICAL INDICATION: Female, 79 years old with history of R91.8 OTHER NONSPECIFIC ABNORMAL FINDING OF LUNG F, Lung nodules, TECHNIQUE: CT scan of the chest is performed with IV Contrast, patient injected with 100 mL of Isovue 300. CT DLP: 465 mGycm, Automated exposure control for dose reduction was used. FINDINGS: LUNGS: 7 mm pulmonary nodule seen previously right lower lobe currently measures 6 mm. There is a tin y 4 mm pulmonary nodule in the right upper lobe image 24 unchanged. No suspicious mass. No infiltrate . There is no pleural effusion or pneumothorax seen. The tracheobronchial tree is patent. MEDIASTINUM: There are no greater than 1 cm hilar or mediastinal lymph nodes. No pericardial effusi on is seen. Thoracic aorta is of normal caliber. HEART: Size within normal limits. No significant coronary artery calcifications. UPPER ABDOMEN: No significant abnormality appreciated. OTHER: cyst left hepatic lobe. IMPRESSION: 7 mm pulmonary nodule seen previously right lower lobe currently measures 6 mm. There is a tiny 4 mm pulmonary nodule in the right upper lobe image 24 unchanged. No suspicious mass. No infiltrate. [facility], , 10/21/2024 12:55 PM
== END | disposition home or self-care (01) ==
LOC: RADCTMAIN 10:12
PROVIDERS: ATTEND Internal Medicine
DX: R91.8 Other nonspecific abnormal finding of lung field (principal)
CPT/HCPCS: 82565; 84520; 71260; 36415; Q9967